=== PATIENT | female | born 1955 | race Caucasian/White ===

== ENCOUNTER 2022-03-15 12:49 | Outpatient (CLI) | payer MEDICARE, SELFPAY ==
--- NOTE | ~2022-03-15 | US_ITS ---
EXAMINATION: US carotid duplex BI DATE: 03/15/2022 13:42 INDICATION: Aortic valve stenosis. Preop. History of TIA. TECHNIQUE: Grayscale, color Doppler, and pulsed Doppler images of the cervical carotid arteries were obtained. The degree of vessel stenosis is placed in one of the following categories: normal, <50%, 5 0-69%, >=70% but less than near-occlusion, near-occlusion, or total occlusion. Note that percent sten osis relative to normal distal artery lumen diameter is indirectly measured from velocity measurement s as described by Demetrio, et al. Radiology 2003; 229:340-346. Notes: Normal: Peak systolic velocity <125 centimeters/sec and no plaque <50%. Peak systolic velocity <125 ( EDV <40; ICA/CCA PSV ratio <2.0; used these factors only a tandem lesions or low cardiac output or co ntralateral disease) 50-69 %: PSV 125-230 (EDV 40-100; ratio 2-4) >= 70% but less than near occlusion: PSV greater than 230 (EDV > 100; ratio> 4.0) Near Occlusion: PSV that is variable; markedly narrowed lumen Occlusion: Absent flow on color/spectral Doppler and no lumen on toussaint scale. COMPARISON: None. FINDINGS: RIGHT: The right common carotid artery (CCA) peak systolic velocity (PSV) is 75 cm/s. The right internal car otid artery (ICA) PSV is 104 cm/s. The right ICA end-diastolic velocity (EDV) is 26 cm/s. The right I CA/CCA PSV ratio is 1.4. The external carotid artery (ECA) PSV is 95 cm/s. There is antegrade flow in the right vertebral artery. LEFT: The left CCA PSV is 83 cm/s. The left ICA PSV is 95 cm/s. The left ICA EDV is 23 cm/s. The left ICA/C CA PSV ratio is 1.1. The ECA PSV is 85 cm/s. There is antegrade flow in the left vertebral artery. IMPRESSION: 1. Less than 50% stenosis in the right internal carotid artery by sonographic criteria. 2. Less than 50% stenosis in the left internal carotid artery by sonographic criteria. Reviewed, dictated and finalized at location A. IMPRESSION: 1. Less than 50% stenosis in the right internal carotid artery by sonographic fay juarez. 2. Less than 50% stenosis in the left internal carotid artery by sonographic yolanda lott.
== END 2022-03-15 12:50 | disposition home or self-care (01) ==
PROVIDERS: PCP Family Medicine Adolescent Medicine; Visit Provider Thoracic Surgery (Cardiothoracic Vascular Surgery)
DX: I35.0 Nonrheumatic aortic (valve) stenosis (principal); Z86.73 Personal history of transient ischemic attack (TIA), and cerebral infarction without residual deficits; I65.23 Occlusion and stenosis of bilateral carotid arteries
CPT/HCPCS: 93880

== ENCOUNTER 2023-09-17 14:37 | Outpatient (CLI) | payer MEDICARE, SELFPAY ==
--- NOTE | ~2023-09-17 | US_ITS ---
EXAMINATION: US thyroid DATE: 09/17/2023 15:03 INDICATION: Nontoxic goiter. TECHNIQUE: Multiple ultrasound images of the thyroid were obtained. COMPARISON: None. FINDINGS: The right thyroid lobe measures 5.6 x 1.6 x 1.8 cm. The left thyroid lobe measures 4.1 x 1.6 x 1.2 c m. There is normal echotexture and echogenicity throughout the thyroid gland. No discrete nodules id entified. Normal vascular flow is present. IMPRESSION: 1. Normal thyroid. Reviewed, dictated and finalized at location E. RNING OFFICER IMPRESSION: 1. Normal thyroid.
== END 2023-09-17 14:38 | disposition home or self-care (01) ==
PROVIDERS: PCP Family Medicine Adolescent Medicine; Visit Provider Registered Nurse
DX: E04.9 Nontoxic goiter, unspecified (principal)
CPT/HCPCS: 76536

== ENCOUNTER 2024-02-20 08:19 | Outpatient (CLI) | payer MEDICARE, SELFPAY ==
--- NOTE | ~2024-02-20 | DEXA_ITS ---
Bone Density Report Name: MOOKIE MARTÍNEZ Age: 68 Sex: Female Ethnicity: White Date of : 1955 Indication: postmenopausal; screening for osteoporosis; height loss; cancer; Referring Provider: REEMA LAKE Study: Bone densitometry was performed. Exam Date: February 20, 2024 Accession number: [id number] Bone Density: Region BMD T-score Z-score Classification AP Spine(L1-L4) 1.302 2.3 4.4 Normal World Health Organization criteria for BMD impression classify patients as: Normal (T-score at or above -1.0), Osteopenia (T-score between -1.0 and -2.5), or Osteoporosis (T-score at or below -2.5). Clinical Information Provided by Patient: Has used the following medications: Vitamin D Has the following medical conditions: Cancer Patient maximum height was 65 Menopause Age: 49 Drinks caffeinated beverages Onset of menses at age 11 Number of children 2 Impression: The patient has normal bone mass. Discussion: LOW RISK OF FRACTURE; BONE DENSITY IS WELL ABOVE THE MINIMUM DESIRABLE LEVEL AND ABOVE AVERAGE FOR AGE AND SEX AT ALL SKELETAL SITES TESTED. This person's bone density is above expected limits for age and sex. This is rarely clinically significant, but should be pursued if there are significant musculoskeletal complaints. The patient should follow a healthful lifestyle (good nutrition with adequate calcium and vitamin D, and appropriate weight-bearing exercise). Follow-Up: Consider repeating this study in 5 years or sooner if there is some new clinical indication. Reported by: MARTA on 02/20/2024 8:46:00 AM. Reviewed, dictated and finalized at location ATorres ESTRADA
== END 2024-02-20 08:20 | disposition home or self-care (01) ==
LOC: ANHIMG 08:20
PROVIDERS: PCP Family Medicine Adolescent Medicine; Visit Provider Family Medicine Adolescent Medicine
DX: Z78.0 Asymptomatic menopausal state (principal)
CPT/HCPCS: 77080

== ENCOUNTER 2025-05-05 15:22 | Emergency (ER) | payer MEDICARE, SELFPAY ==
--- NOTE | ~2025-05-05 | XR_ITS ---
Clinical history:Right distal lateral thigh pain for 2 weeks EXAM:X-ray femur right minimum 2 views TECHNIQUE:4 images of the right femur were obtained. Comparisons:08/17/2009 FINDINGS: Right hip arthroplasty without radiographic evidence for loosening of the hardware. Bones appear osteopenic. Vascular calcifications are noted. No fracture of the right femur is identified. Nonspecific bony irregularity along the lateral aspect of the right inferior acetabulum. There is bowel gas and stool projecting over the pelvis which limits evaluation. IMPRESSION: No fracture of the right femur is identified Nonspecific bony irregularity along the lateral aspect of the right inferior acetabulum. Differential includes sequelae from degenerative change or a subtle nondisplaced fracture of indeterminate age. If there is focal tenderness in this location, consider a CT or MRI for further assessment. Reviewed, dictated and finalized at location Q. IMPRESSION: No fracture of the right femur is identified Nonspecific bony irregularity along the lateral aspect of the right inferior ac etabulum. Differential includes sequelae from degenerative change or a subtle n ondisplaced fracture of indeterminate age. If there is focal tenderness in this location, consider a CT or MRI for further assessment.
[2025-05-05 15:33] VITALS: BP 161/93; PULSE 81; RESP 16; TEMP 37.1; O2SAT 100
--- NOTE | 2025-05-05 16:42 | ED.EXTPRO ---
HPI - Extremity Problem General Chief complaint: Extremity Problem,Nontraumatic Stated complaint: R Leg Pain Time Seen by Provider: 05/05/25 15:37 Source: patient and RN notes reviewed Mode of arrival: ambulatory Limitations: no limitations History of Present Illness HPI Narrative: Patient presents today complaining of proximal right lateral thigh pain x2 weeks. Denies injury or trauma. Associated symptoms include occasional tingling in her low back with some intermittent right-sided low back pain. She describes the thigh pain as burning. She has tried using her 's massage chair at home as well as some Tylenol without improvement. She rates her pain 10/10. History of right hip replacement. Denies numbness to the leg, numbness or tingling in the genitalia, loss of bowel or bladder control. She also denies any groin pain or medial thigh pain, knee pain. Related Data Home Medications ?Medication ?Instructions ?Recorded ?Confirmed ?Last Taken ?Type cholecalciferol (vitamin D3) 1,250 1,250 mcg PO WEEKLY 04/06/21 05/05/25 Unknown History mcg (50,000 unit) capsule loratadine-pseudoephedrine ER 10 1 tablet PO DAILY 04/06/21 05/05/25 Unknown History mg-240 mg tablet,extended [id number] (Claritin-D 24 Hour) aspirin 81 mg tablet,delayed 81 mg PO DAILY 12/19/22 05/05/25 Unknown History release atorvastatin 80 mg tablet 80 mg PO DAILY 12/19/22 05/05/25 Unknown History Allergies Allergy/AdvReac Type Severity Reaction Status Date / Time No Known Allergies Allergy Verified 05/05/25 15:[facility] Past Medical History Medical History Abnormal Pap smear of cervix 04/06/21, HPV pos type 18/45 delivery delivered #1 01/28/89 Male 7 lbs #2 06/30/92 Female 7 lbs Stroke Breast cancer Surgical History Surgical History S/P lumpectomy, right breast x 2 History of section, classical x 2 History of lumpectomy of left breast History of bilateral hip replacements Social History Social History Smoking status: Never smoker Alcohol intake: never Substance use: never Lack of Transportation: No Lack of Food: Never True Current Housing: I Have Housing Concerned About Future Housing: No Difficulty Paying Gas/Electric Bills: No Difficulty Paying for Meds: No Currently Unemployed: No Education: Associate Degree Difficulty w/ Childcare or Family Care: No Living arrangements: with family Occupation/Education: occupation Gender identity (if verbalized by the patient): Female Sexual Orientation (if Verbalized by the Patient): Straight or Heterosexual Spiritual care concerns: No Comments At time of signature, I have reviewed and agree with nursing past medical, surgical, social and family history unless otherwise noted. Please see nursing chart for further information. There is no relevant family history pertinent to the presenting complaint Exam Narrative: GENERAL: Well-appearing, well-nourished, and in no acute distress. HEAD: Normocephalic, atraumatic. EYES: EOMI. No redness or drainage. Conjunctivae normal. ENT: Mucous membranes pink and moist.. NECK: Normal AROM. CHEST: No respiratory distress. MUSCULOSKELETAL: No bony tenderness the lumbar spine. Mild right lower lumbar paraspinal muscle tenderness with palpation. EXTREMITIES: Normal range of motion of the right hip and knee. No edema, erythema, ecchymosis. No tenderness to the hip. Mild Muscular tenderness to the proximal half of the right lateral thigh without any obvious abnormalities. No tenderness to the knee. Distal sensation intact. Capillary saddle sensation intact. 5/5 strength in BLE SKIN: Warm, dry, no rash. Capillary refill normal. Normal skin turgor. NEURO: No focal deficits. Alert and oriented x3. Gait steady. PSYCH: Normal affect. No signs of depression or anxiety. Course Course Level of Care: Express Care Visit Vital Signs Vital signs: Vital Signs Temperature 98.7 F 05/05/25 15:33 Pulse Rate 81 05/05/25 15:33 Respiratory Rate 16 05/05/25 15:33 Blood Pressure 161/93 H 05/05/25 15:33 Pulse Oximetry 100 05/05/25 15:33 Temperature 98.7 F 05/05/25 15:33 Pulse Rate 81 05/05/25 15:33 Respiratory Rate 16 05/05/25 15:33 Blood Pressure 161/93 H 05/05/25 15:33 Pulse Oximetry 100 05/05/25 15:33 Review MDM - Extremity (Nontraumatic) MDM Narrative Medical decision making narrative: 69-year-old female presents with a 2 week history of right lateral thigh pain the proximal half of the thigh without injury or trauma to the area with intermittent right lower lumbar muscular pain and tingling. OTC treatments without improvement. Upon exam, patient has some mild paraspinal muscle tenderness in the right lower lumbar as well as muscular tenderness in the right lateral thigh. Neurovascularly intact with normal strength. X-ray noncontributory. Etiology likely lumbar radiculopathy. Will treat with 5 mg Flexeril and prednisone. Patient has follow-up visit scheduled for next week with her PCP. Patient agrees with plan. Vital signs stable. Differential Diagnosis Differential diagnosis: Likely other (Osteoarthritis, lumbar radiculopathy, bursitis, sciatica) Imaging Data Radiologist's impression: ITS Impressions Femur X-Ray 05/05/25 16:19 IMPRESSION: No fracture of the right femur is identified Nonspecific bony irregularity along the lateral aspect of the right inferior acetabulum. Differential includes sequelae from degenerative change or a subtle nondisplaced fracture of indeterminate age. If there is focal tenderness in this location, consider a CT or MRI for further assessment. Critical Care Time Critical Care Time Critical Care Time: No Discharge Plan Discharge Clinical Impression: Acute lumbar radiculopathy Patient Disposition: Home Condition: Stable Instructions: Lumbar Radiculopathy (ED) Additional Instructions: The x-ray of your leg is negative today. The pain in your leg may be due to irritation in a nerve coming from your spine. Please take the Flexeril and prednisone as directed. Do not drive within 8 hours of taking the Flexeril as it can make you drowsy. You may continue Tylenol if needed. Follow-up with your PCP as scheduled. Go to the ER if you develop numbness or tingling in your leg or foot, or genitalia, loss of bowel or bladder control. Your blood pressure was elevated above 120/80 today at Urgent Care. This puts you above the threshold for follow up. Please schedule a followup visit with your personal physician as soon as possible, for further evaluation and treatment. Even blood pressure exceeding 120/80 may indicate pre-hypertension. Patient Language: Romanian Prescriptions: New cyclobenzaprine 5 mg tablet 5 mg PO TID PRN (Reason: muscle spasm) Qty: 15 0RF prednisone 20 mg tablet 40 mg PO DAILY 5 Days Qty: 10 0RF No Action aspirin 81 mg tablet,delayed release (DR/EC) 81 mg PO DAILY atorvastatin 80 mg tablet 80 mg PO DAILY loratadine-pseudoephedrine [Claritin-D 24 Hour] 10-240 mg tablet extended release 24 hr 1 tablet PO DAILY cholecalciferol (vitamin D3) 1,250 mcg (50,000 unit) capsule 1,250 mcg PO WEEKLY Follow-up/Referrals: Tanner Jordan MD [Primary Care Provider, Family Practice] Time of Disposition: 16:49
== END 2025-05-05 16:56 | disposition home or self-care (01) ==
PROVIDERS: Emergency Provider Nurse Practitioner; PCP Family Medicine Adolescent Medicine
DX: M54.16 Radiculopathy, lumbar region (principal); Z86.73 Personal history of transient ischemic attack (TIA), and cerebral infarction without residual deficits; Z85.3 Personal history of malignant neoplasm of breast; Z90.13 Acquired absence of bilateral breasts and nipples; Z96.643 Presence of artificial hip joint, bilateral; Z79.82 Long term (current) use of aspirin
CPT/HCPCS: 73552; 99213; G0463

== ENCOUNTER 2025-05-21 10:31 | Emergency (ER) | payer MEDICARE, SELFPAY ==
--- OUTSIDE RECORDS SUMMARY | 2010-05-18 04:45 | XMS_ITS | Continuity of Care Document ---
Author Organization [facility] [place] Address [address] [place] [address] Phone Care Team Providers Care Store Custodian Name Role Phone Grey OD, Robb Unavailable Unavailable Procedures Procedure Date Contact Lens Check Contact Lens Hydrophilic, Spherical Medical Tax Eye Exam & Treatment Refraction Frames Deluxe SV Poly Carb Sph +/- 7.12 To +/- 20 D Au Anti-reflective Coating Medical Tax Eye Exam & Treatment Refraction CL Replacement - Other Lens [employer] Eye Exam & Treatment Refraction CL Replacement - [employer] Disp W/BW Soft [employer] SV Poly Carb Sph +/- 7.12 To +/- 20 D Ju Frames Deluxe [employer] CL Replacement - [employer] Disp W/BW Soft Smarty Ring Eye Exam & Treatment Refraction Advance Directives Directive Yes / No Effective Date File Name No Information Encounters Encounter Description Practice Location Reason(s) For Visit Diagnoses Date Provider Providers Copied on [facility]counter [facility], [address], [place], [place], [address], [place] tel:[phone] [facility] No Information 0 3-201 0 Grey OD Robb. [address] , [address], [place], [address], [place]. tel:[phone] [facility], [address], [place], [place], [address], [place] tel:[phone] [facility] No Information Aug-2 6-201 0 Grey OD Robb. [address] , [address], [place], [place], [facility], [place]. tel:[phone] [facility], [address], [place], [place], [address], [place] tel:[phone] [facility] No Information Apr-2 6-201 0 [facility] . [address], [address], [place], [place], [address], . tel:[phone] Consulting Provider: Agueda Mccarty, [address] [place], [place], [facility]. tel:[phone] [facility], [address], [place], [place], [address], [place] tel:[phone] [facility] No Information Apr-2 2-200 9 Grey OD Robb. [address] , [address], [place], [address], [place]. tel:[phone] [facility], [address], [place], [place], [address], [place] tel:[phone] [facility] No Information Sep-1 8-200 8 Grey OD Robb. [address] , [address], [place], [place], [facility], [place]. tel:[phone] [facility], [address], [place], [place], [address], [place] tel:[phone] [facility] No Information Mar-2 7-200 7 [facility] . [address], [address], [place], [place], [address], [place]. tel:[phone] Consulting Provider: Agueda Mccarty, [address] [place], [address]. tel:[phone] [facility], [address], [place], [place], [address], [place] tel:[phone] [facility] No Information 6-200 7 Grey OD Robb. [address] , [address], [place], [address], [place]. tel:[phone] [facility], [address], [place], [place], [address], [place] tel:[phone] [facility] No Information 9-200 7 Grey OD Robb. [address] [facility] , [address], [place], [address], [place]. tel:[phone] Family History Family Member Type Diagnosis Age At Onset No Information Payers Payer name Insurance type Covered alliance party ID Authoriza tion(s) No Information Social History [...]
--- NOTE | ~2025-05-21 | US_ITS ---
EXAMINATION: US venous doppler LE RT DATE: 05/21/2025 14:43 INDICATION: Left lower limb pain TECHNIQUE: Grayscale ultrasound images without and with compression and Doppler ultrasound images of the right lower extremity veins were obtained. COMPARISON: None. FINDINGS: The visualized portions of right common femoral vein, profunda (deep) femoral vein, femoral vein, popliteal vein, peroneal trunk, posterior tibial veins, peroneal veins, gastrocnemius vein and greater saphenous vein outflow are patent. IMPRESSION: 1. No deep venous thrombosis in the right lower limb. Reviewed, dictated and finalized at location A.
--- NOTE | ~2025-05-21 | CT_ITS ---
EXAMINATION: CT hip RT wo con DATE: 05/21/2025 12:24 INDICATION: Lateral right hip pain and tenderness to palpation TECHNIQUE: High resolution computed tomography (CT) of the right hip was performed without intravenous contrast. Additional sagittal and coronal reconstructions were performed. Automated exposure control and iterative reconstruction technique were employed. The dose-length product was 269.08 mGy-cm. COMPARISON: Right femur radiographs dated FINDINGS: Right total hip arthroplasty which appears well seated in near-anatomic alignment. No periprosthetic lucency to suggest loosening or infection. No right hip joint effusion. No fracture. Moderate osteoarthritis at the right sacroiliac joint. Chronic corticated ossicle along the posterior margin of the right ischial tuberosity which could be either enthesopathic or sequela of chronic avulsion injury. There is fatty atrophy of the right gluteus minimus and small portion anterior gluteus medius medius muscle belly. IMPRESSION: 1. Expected appearance of a right total hip arthroplasty. No joint effusion or acute osseous abnormality. Reviewed, dictated and finalized at location A.
--- NOTE | ~2025-05-21 | XR_ITS ---
EXAMINATION: [id number] DATE: 05/21/2025 12:29 INDICATION: Distal right thigh and lateral knee pain TECHNIQUE: AP and lateral views of the right knee were obtained. COMPARISON: None. FINDINGS: Alignment is normal. No fracture. Mild joint space narrowing at the lateral compartment of the right knee on the frontal projection with moderate joint space narrowing the lateral compartment on the lateral projection with the knee in partial flexion. Tiny marginal osteophytes at the medial and patellofemoral compartments. No joint effusion/layering lipohemarthrosis. Vascular calcification along the distal femoral and proximal popliteal artery. Soft tissues are otherwise unremarkable. IMPRESSION: 1. Tricompartmental osteoarthritis at the right knee with at least mild to moderate joint space narrowing in the lateral compartment although joint space narrowing can be underestimated on nonweightbearing imaging. Reviewed, dictated and finalized at location A. IMPRESSION: 1. Tricompartmental osteoarthritis at the right knee with at least mild to mode rate joint space narrowing in the lateral compartment although joint space narr owing can be underestimated on nonweightbearing imaging.
[2025-05-21 10:35] VITALS: BP 181/90; PULSE 87; RESP 16; TEMP 36.4; O2SAT 100
--- OUTSIDE RECORDS SUMMARY | 2025-05-21 11:12 | XMS_ITS | Clinical Summary ---
Author Organization [facility] Address [address], [facility] [address] [place] [address] Phone Care Team Providers Care Screen Printing Stencil Preparer Name Role Phone Mraleen Langston APRN, [employer] ARCHITECT Primary Care Provider + Anitha Alvarez MD Unavailable [phone] Janie Mancilla MD Unavailable [phone] Alina Gurrola MD Unavailable [phone] Allergies No known active allergies Medications aspirin EC 81 MG Tablet Delayed Response Take 81 mg by mouth daily. 10/21/2022 Active atorvastatin (LIPITOR) 80 MG Tablet Take 80 mg by mouth nightly. 11/13/2022 Active ergocalciferol (VITAMIN D) 79088 UNIT Capsule TAKE 1 CAPSULE BY MOUTH ONE TIME PER WEEK 07/24/2020 Active loratadine-pseu doephedrine (Claritin-D 24 Hour) 10-240 MG TABLET SR 24 HR 05/16/2015 Act rich ezetimibe (ZETIA) 10 MG Tablet Take 1 Tablet by mouth daily. 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, estrogen receptor positive 12/12/2022 Cancer Staging:Clinical stage from 08/22/2022:Stage IIA(cT2, cN0(f), cM0, G2, ER+, WY-, HER2-) - Signed by Janie Mancilla MD on 12/30/2022 Pathologic stage from 10/15/2022:Stage IIA(pT2, pN0(sn), cM0, G2, ER+, WY-, HER2- , Oncotype DX score: 22) - Signed by Janie Mancilla MD on 12/12/2022 Overview (01/20/2023): Clinical and pathologic stage IIA (pT2, pNo(sn), cM0, G2, ER positive, WY/HER2 negative, Oncotype DX score: 22) invasive lobular carcinoma status post right partial mastectomy and right axillary sentinel lymph node biopsy 10/15/2022 with involved margins followed by re-excision of the right breast partial mastectomy cavity 11/15/2022 with no evidence of residual neoplasm. She was seen in Medical Oncology consultation not recommended to receive cytotoxic chemotherapy or immunotherapy and instead was to be placed on adjuvant endocrine therapy with exemestane after completion of right breast radiotherapy. She began right whole breast radiotherapy 12/24/2022 and completed 01/14/2023 receiving 42.56 Gy in 16 fractions. History of therapeutic radiation 12/12/2022 Overview (01/20/2023): A. Right whole breast radiotherapy, 42.56 Gy in 16 fractions, from 12/24/2022 thru 01/14/2023. B. Left whole breast radiotherapy, total dose 60.40 Gy in 33 fractions from 04/26/2010 thru 06/13/2010. History of aromatase inhibitor therapy Overview (12/12/2022): Femara History of left breast cancer 12/12/2022 Overview (12/31/2022): Pathologic stage IIA (pT2, pN0, cM0) ER/WY/HER2 positive left breast IDC status post breast conserving surgery and 4 cycles of TCH chemotherapy prior to XRT. She received left whole breast radiotherapy, total dose 60.40 cGy in 33 fractions from 04/26/2010 thru 06/13/2010. Concurrent with her radiotherapy she continued to receive Herceptin every 3 weeks and after radiotherapy continue for a total of 1 year of Herceptin. She also received 5 years of letrozole. Use of exemestane (Aromasin) Resolved Problems Problem Noted Date Diagnosed Date Resolved Date Encounter for radiotherapy 0 02/18/2023 Acute radiation dermatitis 0 02/18/2023 Adverse effect of radiation 02/18/2023 Skin infection 02/18/2023 Cystitis 02/18/2023 Family History Medical History Relation Name Comments Cancer Brother Hypertension Father Stroke Father Relation Name Status Comments Brother Father Mother Social History Tobacco Use Types Packs/Day Years Used Date Smoking Tobacco: Never Smokeless Tobacco: Never Tobacco Cessation:Counseling Given: Not Answered Alcohol Use Standard Drinks/Week Comments Yes 0 (1 standard drink = 0.6 oz pur e alcohol) Occasionally Comments Unknown Sex and Gender Information Value Date Recorded Sex Assigned at Not on file Legal Sex Female 12:26 AM CDT Gender Identity Not on file Sexual Orientation Not on file Last Filed Vital Signs Vital Sign Reading Time Taken Comments Blood Pressure 151/77 09/17/2024 9:10 AM ONCOLOGY COORDINATOR Pulse 65 09/17/2024 9:10 AM ONCOLOGY COORDINATOR Temperature 36.4 C (97.6 F) 09/17/2024 9:10 AM ONCOLOGY COORDINATOR Respiratory Rate 16 09/17/2024 9:10 AM ONCOLOGY COORDINATOR Oxygen Saturation 100% 09/17/2024 9:10 AM ONCOLOGY COORDINATOR Inhaled Oxygen Concentration - - Weight 67.9 kg (149 lb 9.6 oz) 09/17/2024 9:10 A M ONCOLOGY COORDINATOR Height 162.6 cm (5' 4) 09/17/2024 9:10 AM ONCOLOGY COORDINATOR Body Mass Index 25.68 09/17/2024 9:10 AM ONCOLOGY COORDINATOR Plan of Treatment Upcoming Encounters Date Type Department Care Team (Late st Contact Info) Description 09/16/2025 8:00 AM ONCOLOGY COORDINATOR Office Visit [facility] [address] [place] [id number] Janie Mancilla MD [address] [place] [address] Discharge Disposition: Discharged to home or Selfcare Health Maintenance Due Date Last Done Comments DEXA Bone Density 1955 Hepatitis C Virus (HCV) Screening 1955 TdaP Immunization 1954 Pneumococcal Immunization (50+ years) (1 of 2 - PCV) 1973 Zoster Immunization (1 of 2) 1973 Cologuard 1999 Colonoscopy 1999 Colorectal Cancer Screening 1999 Immunochemical Fecal Occult Blood 1999 Respiratory Syncytial Virus (RSV) Immunization (Adult) (1 - Risk 60-74 years 1-dose series) 2014 SARS-COV-2 Immunization (2 - Charly risk series) 06/25/2021 05/28/2021 Influenza Immunization (#1) 2025 Mammogram 09/14/2025 09/14/2024, 08/16, 09/17/2022, Additional history exists Mammogram Unilateral Discontinued 09/14/2024, 09/14/2024, 09/05/2023, Additional history exists Hepatitis B Immunization Aged Out No longer eligible based on patient's age to complete this topic Human Papillomavirus (HPV) Immunization Aged Out No longer eligible based on patient's age to complete this topic Meningococcal Immunization (ACWY) Aged Out No longer eligible based on patient's age to complete this topic Rotavirus Immunization Aged Out No lo nger eligible based on patient's age to complete this topic Insurance MEDICARE C AETNA Care Teams Screen Printing Stencil Preparer Relationship Specialty Start Date End Date Marleen Langston, SERVICE CENTER ASSISTANT, [employer] ARCHITECT PCP - General Obstetrics & Gynecology 03/12/17 Anitha Alvarez MD Consulting Physician General Surgery 12/12/22 Janie Mancilla MD [address] [place] [address] Consulting Physician Radiation Oncology 12/12/22 Alina Gurrola MD [address] [facility] [address] [place] [address] Consulting Physician Medical Oncology 08/27/23
--- OUTSIDE RECORDS SUMMARY | 2025-05-21 11:12 | XMS_ITS ---
Author Organization [facility] Address [address], [facility] [address] [place] [address] Phone Care Team Providers Care Production Proofreader Name Role Phone Marleen Langston APRN, SPONSORSHIP COORDINATOR Primary Care Provider + Anitha Alvraez MD Unavailable [phone] Janie Mancilla MD Unavailable [phone] Alina Gurrola MD Unavailable [phone] Active Problems Problem Noted Date Diagnosed Date Carcinoma of overlapping sit es of right breast in female, estrogen receptor positive 12/12/2022 Cancer Staging:Clinical stage from 08/22/2022:Stage IIA(cT2, cN0(f), cM0, G2, ER+, AR-, HER2-) - Signed by Janie Mancilla MD on 12/30/2022 Pathologic stage from 10/15/2022:Stage IIA(pT2, pN0(sn), cM0, G2, ER+, AR-, HER2- , Oncotype DX score: 22) - Signed by Janie Mancilla MD on 12/12/2022 Overview (01/20/2023): Clinical and pathologic stage IIA (pT2, pNo(sn), cM0, G2, ER positive, AR/HER2 negative, Oncotype DX score: 22) invasive lobular [...] (12/31/2022): Pathologic stage IIA (pT2, pN0, cM0) ER/AR/HER2 positive left breast IDC status post breast [...] years of letrozole. Use of exemestane (Aromasin) Current Treatment and Therapy Plans No current plan information found. Past Treatment and Therapy Plans No past plan information found. Current Radiation Episodes * 3D GROUNDSKEEPER PORTER: Right BreastOverview* First Treatment Date Latest Treatment Date Treatment Site Technique Goal Episode Provider 12/24/2022 01/14/2023 Right Breast 3D GROUNDSKEEPER PORTER Curative * Linked Problems Carcinoma of overlapping sit es of right breast in female, estrogen receptor positive (HCC) Treatment Courses* Course C2 12/24/2022 - 01/14/2023 Treatment Period Fraction Dose Fractions Total Dose Plans Planned R [id number] 12/24/2022 - 01/14/2023 266 cGy / 3 4,256 cGy R Brst_Rev 12/27/2022 - 01/14/2023 266 cGy 13 / 13 3 ,458 cGy Reference Points Delivered R Breast_PRP 12/24/2022 - 01/14/2023 4,256 cGy Resolved Problems Problem Noted Date Diagnosed Date Resolved Date Encounter for radiotherapy 0 02/18/2023 Acute radiation dermatitis 0 02/18/2023 Adverse effect of radiation 02/18/2023 Skin infection 02/18/2023 Cystitis 02/18/2023
--- NOTE | 2025-05-21 11:28 | ED.EXTPRO ---
HPI - Extremity Problem General Chief complaint: Extremity Problem,Nontraumatic Stated complaint: right leg pain Time Seen by Provider: 05/21/25 11:03 Source: patient and family (Daughter) Mode of arrival: ambulatory Limitations: no limitations History of Present Illness HPI Narrative: Patient presents with report of right leg pain of approximately 1 months duration and worsening. She states that initially she was having pain along the distal lateral aspect of her thigh as well as the lateral aspect of her right knee but more recently the pain seems to be along the lateral aspect of her right hip and into her buttock. She denies any midline back pain. The pain is in her buttock and travels along the lateral aspect in general of her entire hip and thigh. She does endorse wearing a belt but denies any tight pants otherwise or wearing heavy belt/told though. No history of diabetes mellitus. She denies any fevers or chills. Patient went to urgent care and was told that she possibly had a hairline fracture around her right hip which was replaced in [address] Rashid who had been with [facility] at the time (but is now in [place]). She denies any injury or trauma. She describes it as a burning sensation. While at urgent care she was prescribed a short course of cyclobenzaprine and a 5 day course of prednisone which she completed. After that her primary care physician represcribed her cyclobenzaprine. No fevers or chills. No history of DVT or PE. She will occasionally experience some numbness/tinglign in her foot. Related Data Home Medications ?Medication ?Instructions ?Recorded ?Confirmed ?Last Taken ?Type cholecalciferol (vitamin D3) 1,250 1,250 mcg PO WEEKLY 04/06/21 05/17/25 Unknown History mcg (50,000 unit) capsule loratadine-pseudoephedrine ER 10 1 tablet PO DAILY 04/06/21 05/17/25 Unknown History mg-240 mg tablet,extended [id number] (Claritin-D 24 Hour) aspirin 81 mg tablet,delayed 81 mg PO DAILY 12/19/22 05/17/25 Unknown History release atorvastatin 80 mg tablet 80 mg PO DAILY 12/19/22 05/17/25 Unknown History Allergies Allergy/AdvReac Type Severity Reaction Status Date / Time No Known Allergies Allergy Verified 05/11/25 15:37 [facility] Past Medical History Medical History (Updated 05/22/25 @ 00:01 by Nuvia Pina) Abnormal Pap smear of cervix 04/06/21, HPV pos type 18/45 delivery delivered #1 01/28/89 Male 7 lbs #2 06/30/92 Female 7 lbs Stroke Breast cancer Surgical History Surgical History S/P lumpectomy, right breast x 2 History of section, classical x 2 History of lumpectomy of left breast History of bilateral hip replacements R 2009 Dr Rashid (previously with [facility]) Social History Social History (Updated 05/11/25 @ 15:49 by Meredith Carlos [facility]) Smoking status: Never smoker Alcohol intake: never Substance use: never Do You Feel Safe in your Home?: Yes Lack of Transportation: No Lack of Food: Never True Current Housing: I Have Housing Concerned About Future Housing: No Difficulty Paying Gas/Electric Bills: No Difficulty Paying for Meds: No Currently Unemployed: No Education: Associate Degree Difficulty w/ Childcare or Family Care: No Living arrangements: with family Occupation/Education: occupation Gender identity (if verbalized by the patient): Female Sexual Orientation (if Verbalized by the Patient): Straight or Heterosexual Spiritual care concerns: No Exam Narrative: GENERAL: Well-appearing, well-nourished HEAD: Normocephalic, atraumatic. EYES: Non injected, non icteric ENT: Nares clear, no rhinorrhea or epistaxis. Gross auditory acuity intact. NECK: Supple. No meningismus. CHEST: Speaking in full sentences. No respiratory distress. HEART: Regular rate and rhythm. . ABDOMEN: Soft, nondistended. No rigidity or guarding. Not peritoneal EXTREMITIES: Normal range of motion. No lower extremity edema. Patient has some tenderness to palpation in this area but without obvious bony deformity. 5/5 strength with bilateral ankle dorsiflexion plantar flexion. Mild TTP throughout lateral R thigh. BACK: No midline TTP lumbar spine. Mild TTP into R buttock, less so than at R hip. SKIN: Warm, dry, no rash. Well-healed surgical scar along lateral aspect of right hip. No erythema, induration, vesicles/lesions. NEURO: No focal deficits. Alert and oriented. Answering questions. Following commands. Normal speech without aphasia or dysarthria. Sensation intact to gross touch throughout right lower extremity. PSYCH: Normal mood and affect. Course Vital Signs Vital signs: Vital Signs Temperature 97.6 F 05/21/25 10:35 Pulse Rate 87 05/21/25 10:35 Respiratory Rate 16 05/21/25 10:35 Blood Pressure 181/90 H 05/21/25 10:35 Pulse Oximetry 100 05/21/25 10:35 Oxygen Delivery Room Air 05/21/25 10:35 Temperature 97.6 F 05/21/25 10:35 Pulse Rate 66 05/21/25 16:27 Respiratory Rate 18 05/21/25 16:27 Blood Pressure 164/83 H 05/21/25 16:27 Pulse Oximetry 100 05/21/25 16:27 Oxygen Delivery Room Air 05/21/25 10:35 MDM - Extremity (Nontraumatic) MDM Narrative Medical decision making narrative: Patient presents with report of right leg pain approximately 1 months duration and worsening. She states it initially started as distal lateral thigh pain as well as right lateral knee pain has since progressed to become a right lateral hip pain from to buttock and extending along the lateral aspect of entire right thigh. Pain terminates at the knee but then she will occasionally experience him some tingling in her foot. X-ray to urgent care in April as below. In the emergency department she is afebrile with vital signs notable for hypertension. CRP mildly elevated as is ESR. Dimer mildly elevated; US ordered. We discussed that distribution of symptoms is consistent with meralgia paresthetica but could not exclude osteomyelitis although felt to be less likely at this point given otherwise well/non-toxic appearing. Advised multimodal pain strategy and follow up with PCP in 3 days if not improving as may require alternative pain management strategy, injection, PT, advanced imaging such as MRI, etc. Also given strict ED return precautions which she verifies understanding. Daughter able to provide transportation home today after medications have been given. Differential Diagnosis Differential diagnosis: Likely herpes zoster, cellulitis, superficial thrombophlebitis, deep vein thrombosis of lower extremity and other (Femoral cutaneous/meralgia paresthetica; hardware malfunction; osteoarthritis; osteomyelitis; considered sciatica; fracture/dislocation) Medical Records Attestation: I reviewed the patient's medical records. Medical records narrative: 05/05/25 XRAY IMPRESSION: No fracture of the right femur is identified Nonspecific bony irregularity along the lateral aspect of the right inferior acetabulum. Differential includes sequelae from degenerative change or a subtle nondisplaced fracture of indeterminate age. If there is focal tenderness in this location, consider a CT or MRI for further assessment. Lab Data Attestation: I reviewed the patient's lab results. Lab results narrative: CBC w/o leukocytosis, anemia, thrombocytopenia 05/21/25 13:37 05/21/25 13:37 Labs: Lab Results 05/21/25 Range/Units 13:37 WBC 7.0 (4.5-10.0) K/mm3 RBC 4.44 (4.2-5.4) M/mm3 Hgb 12.7 (12.0-15.0) g/dL Hct 38.7 (37.0-47.0) % MCV 87.2 (80-100) fl MCH 28.6 (26-34) pg MCHC 32.8 (32-36) g/dl RDW 12.3 (11.5-14.5) % Plt Count 220 (150-375) k/mm3 MPV 8.5 (7.4-10.4) fl Immature Gran % (Auto) 0.3 (0-0.5) % Neut % (Auto) 63.3 (45.5-73.1) % Lymph % (Auto) 26.1 (18.3-44.2) % Wirt % (Auto) 8.5 (2.6-8.5) % Eos % (Auto) 0.9 (0-4.4) % Baso % (Auto) 0.9 (0.2-1.2) % Lymph # (Auto) 1.82 (0.9-3.2) K/mm3 Wirt # (Auto) 0.6 (0.1-0.6) K/mm3 Eos # (Auto) 0.1 (0-0.3) K/mm3 Baso # (Auto) 0.1 (0.0-0.1) K/mm3 Abs Immat Gran (auto) 0.02 (0.00-0.031) K/mm3 Absolute Neuts (auto) 4.4 (1.3-6.7) K/mm3 Absolute Nucleated RBC 0.000 (0.0-0.012) K/mm3 Nucleated RBC % 0.0 (0.0-0.2) % ESR 47 H (0-20) mm/hr PT 14.0 (11.1-14.7) Seconds INR 1.1 APTT 28.0 (22.3-36.8) Seconds D-Dimer 0.53 H (<0.48) ug/mL Sodium 134 L (137-145) mmol/L Potassium 4.8 (3.4-5.0) mmol/L Chloride 101 (98-107) mmol/L Carbon Dioxide 29 (22-30) mmol/L Anion Gap 4 (4-12) mmol/L BUN 10 (7-17) mg/dL Creatinine 0.76 (0.7-1.0) mg/dL Estim Creat Clear Calc 52 ml/min Estimated GFR > 60 (59 - ) Glucose 107 (65-110) mg/dL Calcium 9.0 (8.4-10.2) mg/dL Magnesium 2.2 (1.6-2.3) mg/dL Total Creatine Kinase 71 (30-135) U/L C-Reactive Protein 1.7 H (<1.0) mg/dL Imaging Data Radiologist's impression: IMPRESSION: 1. Expected appearance of a right total hip arthroplasty. No joint effusion or acute osseous abnormality. IMPRESSION: 1. Tricompartmental osteoarthritis at the right knee with at least mild to moderate joint space narrowing in the lateral compartment although joint space narrowing can be underestimated on nonweightbearing imaging. IMPRESSION: 1. No deep venous thrombosis in the right lower limb. Discharge Plan Discharge Clinical Impression: Tricompartment osteoarthritis of right knee, History of total right hip arthroplasty, Hip pain, right, CRP elevated, Elevated erythrocyte sedimentation rate Patient Disposition: Home Condition: Stable Instructions: Antibiotic Form, Osteoarthritis (DC), Meralgia Paresthetica (ED), Hip Pain (ED) Additional Instructions: As we discussed, recommend the aggressive multimodal pain management strategy. Acetaminophen/Tylenol (maximum 4000 mg per day) is safe to take with NSAIDs (ibuprofen/Motrin) for pain relief. Of those, the NSAIDs also help with inflammation. Limit wearing a belt. Muscle relaxer and lidocaine patches have also been ordered. Follow-up with your PCP in the next 3 days. If not improving, you may require advanced imaging such as MRI, physical therapy, alternative pain medication including but not limited to injections or other oral medications, etc. Return to the emergency department with any new or worsening symptoms. Return to the ER if you have increased pain in your back, you develop lower extremity weakness/numbness/paralysis, you have numbness or tingling in your private parts, or you are unable to control your ability to urinate/stool. Patient Language: Gibraltarian Prescriptions: New lidocaine 4 % adhesive patch,medicated 1 patch topical DAILY PRN (Reason: pain) Qty: 10 0RF ibuprofen 600 mg tablet 600 mg PO TID PRN (Reason: pain) Qty: 30 0RF acetaminophen 500 mg capsule 1,000 mg PO Q6H PRN (Reason: pain) Qty: 30 0RF methocarbamol 750 mg tablet 750 mg PO HS Qty: 7 0RF No Action prednisone 20 mg tablet 40 mg PO DAILY 5 Days Qty: 10 0RF aspirin 81 mg tablet,delayed release (DR/EC) 81 mg PO DAILY atorvastatin 80 mg tablet 80 mg PO DAILY cyclobenzaprine 5 mg tablet 5 mg PO TID PRN (Reason: muscle spasm) Qty: 30 0RF loratadine-pseudoephedrine [Claritin-D 24 Hour] 10-240 mg tablet extended release 24 hr 1 tablet PO DAILY cholecalciferol (vitamin D3) 1,250 mcg (50,000 unit) capsule 1,250 mcg PO WEEKLY Follow-up/Referrals: Kiara Boyd DO [Primary Care Provider, Family Practice] Stand Alone Forms: Work/School Release IP Time of Disposition: 16:08
[2025-05-21] MEDS: HYDROcodone/acetaminophen (*CRX) 5-325 MG TABLET 1 TAB PO (12:33)
[2025-05-21 13:29] VITALS: BP 169/59; PULSE 65; RESP 18; O2SAT 97
[2025-05-21 13:57] LABS: Hematocrit 38.7 % (37.0-47.0); Hemoglobin 12.7 g/dL (12.0-15.0); Immature Granulocyte Percent A 0.3 % (0-0.5); Lymphocytes Absolute Auto 1.82 K/mm3 (0.9-3.2); Mean Corpuscular HGB Conc 32.8 g/dl (32-36); Mean Corpuscular Hemoglobin 28.6 pg (26-34); Mean Corpuscular Volume 87.2 fl (80-100); Nucleated Red Blood Cells Absolute Auto 0.000 K/mm3 (0.0-0.012); Nucleated Red Blood Cells Perc 0.0 % (0.0-0.2); Platelet Count Result 220 k/mm3 (150-375); Red Blood Count 4.44 M/mm3 (4.2-5.4); White Blood Count 7.0 K/mm3 (4.5-10.0)
[2025-05-21 14:10] LABS: Anion Gap 4 mmol/L (4-12); Blood Urea Nitrogen 10 mg/dL (7-17); Calcium 9.0 mg/dL (8.4-10.2); Carbon Dioxide 29 mmol/L (22-30); Chloride 101 mmol/L (98-107); Creatine Kinase 71 U/L (30-135); Estimated CRCL calculation 52 ml/min; Estimated Glomerular Filt Rate > 60; Glucose 107 mg/dL (65-110); Magnesium 2.2 mg/dL (1.6-2.3); Potassium 4.8 mmol/L (3.4-5.0); Sodium 134 mmol/L (137-145)
[2025-05-21 14:11] LABS: CRP 1.7 mg/dL (<1.0)
[2025-05-21 14:12] LABS: INR 1.1; Prothrombin Time 14.0 Seconds (11.1-14.7)
[2025-05-21 14:13] LABS: Partial Thromboplastin Time 28.0 Seconds (22.3-36.8)
[2025-05-21] MEDS: diazePAM (*CRX) 2 MG TABLET PO (16:21)
[2025-05-21 16:27] VITALS: BP 164/83; PULSE 66; RESP 18; O2SAT 100
[2025-05-21] MEDS: KETOROLAC 30 MG/ML VIAL (*BKC) 15 MG IM (16:29)
== END 2025-05-21 16:39 | disposition home or self-care (01) ==
PROVIDERS: Emergency Provider Student in an Organized Health Care Education/Training Program; PCP Family Medicine
DX: M25.551 Pain in right hip (principal); M17.11 Unilateral primary osteoarthritis, right knee; R79.82 Elevated C-reactive protein (CRP); R70.0 Elevated erythrocyte sedimentation rate; Z96.643 Presence of artificial hip joint, bilateral; I10 Essential (primary) hypertension; Z86.73 Personal history of transient ischemic attack (TIA), and cerebral infarction without residual deficits; Z85.3 Personal history of malignant neoplasm of breast; Z79.899 Other long term (current) drug therapy
CPT/HCPCS: 36415; 73560; 73700; 80048; 82550; 83735; 85025; 85380; 85610; 85652; 85730; 86140; 93971; 96372; 99284; A9270; J1885

== ENCOUNTER 2025-06-17 10:26 | Outpatient (CLI) | payer MEDICARE, SELFPAY ==
--- OUTSIDE RECORDS SUMMARY | 2010-05-18 04:45 | XMS_ITS | Continuity of Care Document ---
Author Organization [facility] [place] Address [address] [place] [address] Phone Care Team Providers Care Landman Name Role Phone Grey OD, Robb Unavailable Unavailable Procedures Procedure Date Contact Lens Check Contact Lens Hydrophilic, Spherical Medical Tax Eye Exam & Treatment Refraction Frames Deluxe SV Poly Carb Sph +/- 7.12 To +/- 20 D Au Anti-reflective Coating Medical Tax Eye Exam & Treatment Refraction CL Replacement - Other Lens [employer] Eye Exam & Treatment Refraction CL Replacement - [employer] Disp W/BW Soft [employer] SV Poly Carb Sph +/- 7.12 To +/- 20 D Ju Frames Deluxe [employer] CL Replacement - [employer] Disp W/BW Soft Possible Web Eye Exam & Treatment Refraction Advance Directives Directive Yes / No Effective Date File Name No Information Encounters Encounter Description Practice Location Reason(s) For Visit Diagnoses Date Provider Providers Copied on Encounter [facility], [address], [place], [place], [address], [place] tel:[phone] [facility] No Information 0 3-201 0 Grey OD Robb. [address] , [address], [place], [address], [place]. tel:[phone] [facility], [address], [place], [place], [address], [place] tel:[phone] [facility] No Information Aug-2 6-201 0 Grey OD Robb. [address] , [address], [place], [place], [facility], [place]. tel:[phone] [facility], [address], [place], [place], [address], [place] tel:[phone] [facility] No Information Apr-2 6-201 0 [facility] . [address], [address], [place], [place], [address], . tel:[phone] Consulting Provider: Agueda Mccarty, [address] [place], [place], [facility]. tel:[phone] [facility], [address], [place], [place], [address], [place] tel:[phone] [facility] No Information Apr-2 2-200 9 Grey OD Robb. [address] , [address], [place], [address], [place]. tel:[phone] [facility], [address], [place], [place], [address], [place] tel:[phone] [facility] No Information Sep-1 8-200 8 Grey OD Robb. [address] , [address], [place], [place], [facility], [place]. tel:[phone] [facility], [address], [place], [place], [address], [place] tel:[phone] [facility] No Information Mar-2 7-200 7 [facility] . [address], [address], [place], [place], [address], [place]. tel:[phone] Consulting Provider: Agueda Mccarty, [address] [place], [address]. tel:[phone] [facility], [address], [place], [place], [address], [place] tel:[phone] [facility] No Information 6-200 7 Grey OD Robb. [address] [facility] , [address], [place], [address], [place]. tel:[phone] [facility], [address], [place], [place], [address], [place] tel:[phone] [facility] No Information 9-200 7 Grey OD Robb. [address] [facility] , [address], [place], [address], [place]. tel:[phone] Family History Family Member Type Diagnosis Age At Onset No Information Payers Payer name Insurance type Covered libertarian ID Authoriza tion(s) No Information Social History Type Description Quantity Date Captured Comments Sex Female Smoking Status No Information Chief Complaint And Reason For Visit No Information Reason For Referral Reason For Referral No Information History Of Present Illness Encounter Date Complaint History Of Prese nt Illness No Information Functional Status Date Functional Assessmen t No Information Instructions Date Instruction Additional Infor mation No Information Assessments Type Assessment Date No Information Patient Care Teams Name Effective Dates (start - stop) Status Members No Information
--- NOTE | 2025-06-17 10:30 | ECG_ITS ---
Test Date: 2025-06-17 10:36:05 Measurements Intervals Banner Rate: 67 P: 51 SD: 137 QRS: -10 QRSD: 92 T: 67 QT: 426 QTc: 453 Interpretive Statements SINUS RHYTHM WITH OCCASIONAL VENTRICULAR PREMATURE COMPLEXES POSSIBLE LEFT ATRIAL ENLARGEMENT INCOMPLETE RIGHT BUNDLE BRANCH BLOCK LEFT VENTRICULAR HYPERTROPHY WITH ST-T CHANGE BORDERLINE R WAVE PROGRESSION, ANTERIOR LEADS BASELINE ARTIFACT- I, II, III, AVR, AVL, AVF BORDERLINE ECG No previous ECG available for comparison Electronically Signed On 06-17-2025 10:42:13 CDT by Ray Cottrell D.O.
--- OUTSIDE RECORDS SUMMARY | 2025-06-17 10:38 | XMS_ITS ---
Author Organization [facility] Address [address] [place] [address] Phone Care Team Providers Care Electronic Video Games Servicer Name Role Phone Marleen Langston APRN, PIGMENT FURNACE TENDER Primary Care Provider + Anitha Alvarez MD Unavailable [phone] Janie Mancilla MD Unavailable [phone] Alina Gurrola MD Unavailable [phone] Active Problems Problem Noted Date Diagnosed Date Carcinoma of overlapping sit es of right breast in female, estrogen receptor positive 12/12/2022 Cancer Staging:Clinical stage from 08/22/2022:Stage IIA(cT2, cN0(f), cM0, G2, ER+, NJ-, HER2-) - Signed by Janie Mancilla MD on 12/30/2022 Pathologic stage from 10/15/2022:Stage IIA(pT2, pN0(sn), cM0, G2, ER+, NJ-, HER2- , Oncotype DX score: 22) - Signed by Janie Mancilla MD on 12/12/2022 Overview (01/20/2023): Clinical and pathologic stage IIA (pT2, pNo(sn), cM0, G2, ER positive, NJ/HER2 negative, Oncotype DX score: 22) invasive lobular [...] (12/31/2022): Pathologic stage IIA (pT2, pN0, cM0) ER/NJ/HER2 positive left breast IDC status post breast [...] information found. Current Radiation Episodes * 3D WEED CONTROLLER: Right BreastOverview* First Treatment Date Latest Treatment Date Treatment Site Technique Goal Episode Provider 12/24/2022 01/14/2023 Right Breast 3D WEED CONTROLLER Curative * Linked Problems Carcinoma of overlapping sit es of right breast in female, estrogen receptor positive Treatment Courses* Course C2 12/24/2022 - 01/14/2023 Treatment Period Fraction Dose Fractions Total Dose Plans Planned R [id number] 12/24/2022 - 01/14/2023 266 cGy 4,256 cGy R Brst_Rev 12/27/2022 - 01/14/2023 266 cGy 3 ,458 cGy Reference Points Delivered R Breast_PRP 12/24/2022 - 01/14/2023 4,256 cGy Resolved Problems Problem Noted Date Diagnosed Date Resolved Date Encounter for radiotherapy 0 02/18/2023 Acute radiation dermatitis 0 02/18/2023 Adverse effect of radiation 02/18/2023 Skin infection 02/18/2023 Cystitis 02/18/2023
--- OUTSIDE RECORDS SUMMARY | 2025-06-17 10:38 | XMS_ITS | Clinical Summary ---
Author Organization [facility] Address [address] [place] [address] Care Team Providers Care Film Writer Name Role Phone Tanner Jordan MD Primary Care Prov ider Allergies No known active allergies Medications loratadine-pseu doephedrine (Claritin-D 24 Hour) 10-240 mg per 24 hr tablet Take 1 tablet by mouth daily as needed 5 Active ergocalciferol (VITAMIN D) 50,000 unit capsule Take 1 capsule (50,000 Units total) by mouth once a week Friday 0 Active docusate sodium (COLACE) 100 mg capsuleIndicati ons:constipatio n Take 1 capsule (100 mg total) by mouth 2 (two) times a day 2 Active Additional Information Patient not taking.Reported on 11/13/2022 aspirin 81 mg enteric coated tablet TAKE 1 TABLET BY MOUTH EVERY DAY 90 tablet 3 3 Active amLODIPine (NORVASC) 10 mg tablet Take 1 tablet (10 mg total) by mouth nightly 90 tablet 6 4 Active atorvastatin (LIPITOR) 80 mg tablet Take 1 tablet (80 mg total) by mouth nightly 90 tablet 6 5 05/06/20 26 Active Active Problems Problem Noted Date Diagnosed Date Coronary artery disease of n ative heart with stable angina pectoris 03/08/2022 Overview (03/08/2022): Added automatically from request for surgery [id number] Nonrheumatic aortic valve stenosis 08/15/2021 Overview (08/15/2021): Added automatically from request for surgery [id number] Encounters Date Type Department Care Team Description 06/07/2025 8:48 AM CDT - 06/07/2025 11:59 PM CDT Hospital Encounter [facility] [address] [place] [address] Right knee pain, unspecified chronicity Discharge Disposition: Discharge to home or self care 05/11/2025 9:15 AM CDT Office Visit [facility] [address] [place] [id number] Saw Zimmerman MD Coronary artery disease involving manzanita coronary artery of manzanita heart without angina pectoris (Primary Dx); S/P CABG x 1; S/P aortic valve replacement from Last 3 Months Surgical History Surgery Date Site/Laterality Comments BREAST LUMPECTOMY Left TOTAL HIP ARTHROPLASTY Bilateral Medical History Medical History Date Comments Heart murmur Breast cancer (HCC) 2009 left s/p paulette mo & radiation Nonrheumatic aortic (valve) stenosis 08/2021 Coronary artery disease Hyperlipidemia History of transfusion Family History Medical History Relation Name Comments Stroke Father Other Mother killed in an ac cident Relation Name Status Comments Father Mother Social History Tobacco Use Types Packs/Day Years Used Date Smoking Tobacco: Never Smokeless Tobacco: Never Tobacco Cessation:Counseling Given: Not Answered Alcohol Use Standard Drinks/Week Comments No 0 (1 standard drink = 0.6 oz pur e alcohol) AUDIT-C Answer Date Recorded Q1: How often do you have a drink containing alc ohol? Monthly or less 03/25/2022 Average Number of Drinks Not on file 022 Frequency of Binge Drinking Not on file 03/15 Comments No Sex and Gender Information Value Date Recorded Sex Assigned at Not on file Legal Sex Female 12:18 PM PRICING MANAGER Gender Identity Not on file Sexual Orientation Not on file Obstetrics History Last Filed Vital Signs Vital Sign Reading Time Taken Comments Blood Pressure 130/68 05/11/2025 9:11 AM CDT Pulse 82 05/11/2025 9:11 AM CDT Temperature 36 C (96.8 F) 04/18/2022 12:27 PM CDT Respiratory Rate 16 07/22/2024 3:07 PM PRICING MANAGER Oxygen Saturation 98% 05/11/2025 9:11 AM CDT Inhaled Oxygen Concentration - - Weight 70.2 kg (154 lb 12.8 oz) 05/11/2025 9:11 AM CDT Height 162.6 cm (5' 4) 05/11/2025 9:11 AM CDT Body Mass Index 26.57 05/11/2025 9:11 AM CDT Plan of Treatment Health Maintenance Due Date Last Done Comments Breast Cancer Screening-Mammogram 1954 Colon Cancer Screening-Colonoscopy 1954 Depression Screening 1954 Hepatitis C Screening 1954 Osteoporosis Screening-Bone Density Scan 1954 DTaP/Tdap/Td Vaccine (1 - Tdap) 1965 Hepatitis B Screening 1972 Pneumococcal vaccine 65+ (1 of 2 - PCV) 1973 Zoster Vaccine (1 of 2) 2004 Well Visit 65+ 2019 Fall Risk Assessment 03/29/2023 03/29/2022 Covid-19 Vaccine (2 - season) 2025 Influenza Vaccine (#1) 2025 Medical Devices Implanted Type Area Biomedical Manager Device Identifier Shelf Expiration Date Model / Serial / Lot [employer] Inspiris Resilia Aortic Valve 21mm [id number] - [id number] - [id number] Implanted:Qty: 1 on 03/25/2022 by Jaylan Rahman MD at [facility] N/A: Heart [employer] 06/27/2025 [id number] / [id number] / Procedures Procedure Name Priority Date/Time Associated Diagnosis Comments MRI KNEE RIGHT WO CONTRAST Schedule Routine, Read Routine (OP Routine) 06/07/2025 9:39 AM CDT Right knee pain, unspecified chronicity POCT LIPID PANEL Routine 05/11/2025 10:0 0 AM CDT Coronary artery disease involving manzanita coronary artery of manzanita heart without angina pectoris from Last 3 Months Results * MRI Knee Right WO Contrast (06/07/2025 9:39 AM CDT) Anatomical Region Laterality Modality Lower Extremities Right Magnetic Reson ance 06/07/2025 12:1 0 PM CDT Narrative 06/07/2025 3:53 PM CDT EXAM DESCRIPTION: MRI KNEE RIGHT WO CONTRAST REASON FOR STUDY: M25.561 Right knee pain around the patella and lateral pain , started 2 months ago , no surgery TECHNIQUE: Multiplanar, multisequence MRI of the right knee was performed without contrast. COMPARISON: None available FINDINGS: In the medial compartment, the meniscus is intact. Minimal chondrosis. In the lateral compartment, there is complex tearing of the meniscal body with predominant horizontal component. Deep partial and full-thickness cartilage loss of the tibial plateau and the posterior weight-bearing femoral condyle is present with multifocal subchondral edema. In the patellofemoral compartment, there is partial-thickness cartilage loss of the inferior patella. Mild lateral patellar subluxation. Mild edema involving the superolateral aspect of Hoffa's fat pad. The cruciate and collateral ligaments are intact. The extensor mechanism is normal. The popliteus tendon is intact. Small effusion is present. There are no loose bodies. IMPRESSION: 1. Complex tear of the right lateral meniscal body with predominant horizontal component. 2. Moderate to severe lateral predominant tricompartmental right knee chondrosis. 3. Small right knee effusion. 4. Mild edema involving the superolateral aspect of Hoffa's fat pad, which can be associated with lateral femoral condyle patellar tendon friction syndrome. THIS IS AN ELECTRONICALLY VERIFIED FINAL REPORT 06/07/2025 3:53 PM - Electronically signed by Tobin Freeman M.D. MF: [id number] Report ID: [id number] Reading Location: [id number] Procedure Note Tobin Freeman MD - 06/07/2025 EXAM DESCRIPTION: MRI KNEE RIGHT WO CONTRAST REASON FOR STUDY: M25.561 Right knee pain around the patella and lateral pain , started 2 months ago, no surgery TECHNIQUE: Multiplanar, multisequence MRI of the right knee wasperformed without contrast. COMPARISON: None available FINDINGS: In the medial compartment, the meniscus is intact. Minimal chondrosis. In the lateral compartment, there is complex tearing of the meniscal bodywith predominant horizontal component. Deep partial and full-thicknesscartilage loss of the tibial plateau and the posterior weight-bearing femoralcondyle is present with multifocal subchondral edema. In the patellofemoral compartment, there is partial-thickness cartilageloss of the inferior patella. Mild lateral patellar subluxation. Mild edema involving the superolateral aspect of Hoffa's fat pad. The cruciate and collateral ligaments are intact. The extensor mechanismis normal. The popliteus tendon is intact. Small effusion is present. Thereare no loose bodies. IMPRESSION: 1. Complex tear of the right lateral meniscal body with predominant horizontal component. 2. Moderate to severe lateral predominant tricompartmental right knee chondrosis. 3. Small right knee effusion. 4. Mild edema involving the superolateral aspect of Hoffa's fat pad,which can be associated with lateral femoral condyle patellar tendon friction syndrome. THIS IS AN ELECTRONICALLY VERIFIED FINAL REPORT 06/07/2025 3:53 PM - Electronically signed by Tobin Freeman M.D. MF: [id number] Report ID: [id number] Reading Location: [place] [address] Tree Olivo MD IMG MRI PROCEDURES Final Re sult * POCT lipid panel (05/11/2025 10:00 AM CDT) Cholesterol, POC 192 <200 MG/DL HDL, POC 60 >=40 mg/dL Triglycerides, POC 97 <=149 mg/dL LDL Cholesterol POC 113 <=129 mg/dL Chol/HDL Ratio, POC 1.9 NONE Non-HDL Cholesterol, POC 132 NONE mg/dL Cholesterol Total, POC 192 30 - 199 mg/dL Capillary blood 05/11/2025 1 0:00 AM CDT Swa Zimmerman MD POINT OF CARE TEST ORDERABLES Fi nal Result from Last 3 Months Insurance [facility] MEDICARE [facility] MEDICARE [facility] MEDICARE [employer] MEDICARE Advance Directives For more information, please contact: [phone] * Full Code (Latest Code Status on File) Date Activated Date Inactivated Comments 03/25/2022 1:42 PM 03/29/2022 9:25 PM Care Teams Film Writer Relationship Specialty Start Date End Date Tanner Jordan MD PCP - General 12/14/17
--- OUTSIDE RECORDS SUMMARY | 2025-06-17 10:38 | XMS_ITS | Clinical Summary ---
Author Organization [facility] Address [address] [place] [address] Phone Care Team Providers Care Materials Planner/Production Planner Name Role Phone Marleen Langston APRN, HAND THERAPIST Primary Care Provider + Anitha Alvarez MD Unavailable [phone] Janie Mancilla MD Unavailable [phone] Alina Gurrola MD Unavailable [phone] Allergies No known active allergies Medications aspirin EC 81 MG Tablet Delayed Response Take 81 mg by mouth daily. 10/21/2022 Active atorvastatin (LIPITOR) 80 MG Tablet Take 80 mg by mouth nightly. 11/13/2022 Active ergocalciferol (VITAMIN D) 87817 UNIT Capsule TAKE 1 CAPSULE BY MOUTH [...] from 08/22/2022:Stage IIA(cT2, cN0(f), cM0, G2, ER+, NV-, HER2-) - Signed by Janie Mancilla MD on 12/30/2022 Pathologic stage from 10/15/2022:Stage IIA(pT2, pN0(sn), cM0, G2, ER+, NV-, HER2- , Oncotype DX score: 22) - Signed by Janie Mancilla MD on 12/12/2022 Overview (01/20/2023): Clinical and pathologic stage IIA (pT2, pNo(sn), cM0, G2, ER positive, NV/HER2 negative, Oncotype DX score: 22) invasive lobular [...] (12/31/2022): Pathologic stage IIA (pT2, pN0, cM0) ER/NV/HER2 positive left breast IDC status post breast [...] Comments Blood Pressure 151/77 09/17/2024 9:10 AM ELECTRO MECHANICAL ENGINEER Pulse 65 09/17/2024 9:10 AM ELECTRO MECHANICAL ENGINEER Temperature 36.4 C (97.6 F) 09/17/2024 9:10 AM ELECTRO MECHANICAL ENGINEER Respiratory Rate 16 09/17/2024 9:10 AM ELECTRO MECHANICAL ENGINEER Oxygen Saturation 100% 09/17/2024 9:10 AM ELECTRO MECHANICAL ENGINEER Inhaled Oxygen Concentration - - Weight 67.9 kg (149 lb 9.6 oz) 09/17/2024 9:10 A M ELECTRO MECHANICAL ENGINEER Height 162.6 cm (5' 4) 09/17/2024 9:10 AM ELECTRO MECHANICAL ENGINEER Body Mass Index 25.68 09/17/2024 9:10 AM ELECTRO MECHANICAL ENGINEER Plan of Treatment Upcoming Encounters Date Type Department Care Team (Late st Contact Info) Description 09/16/2025 8:00 AM ELECTRO MECHANICAL ENGINEER Office Visit [facility] [address] [place] [phone] Janie Mancilla MD [address] [place] [address] Discharge Disposition: Discharged to home or Selfcare [...] (2 - Charly risk series) 06/25/2021 05/28/2021 Medicare Initial AWV [id number] 09/15/2022 Influenza Immunization (#1) 2025 Mammogram 09/14/2025 09/14/2024, [...] topic Insurance MEDICARE C [employer]ET[employer] Care Teams Materials Planner/Production Planner Relationship Specialty Start Date End Date Marleen Langston, CLINICAL OPERATIONS CONSULTANT, HAND THERAPIST PCP - General Obstetrics & Gynecology 03/12/17 Anitha Alvarez MD Consulting Physician General Surgery 12/12/22 Janie Mancilla MD [address] [place] [address] Consulting Physician Radiation Oncology 12/12/22 Alina Gurrola MD [address] [facility] [address] [place] [address] Consulting Physician Medical Oncology 08/27/23
== END 2025-06-17 10:27 | disposition home or self-care (01) ==
LOC: ANHSURGERY 10:29
PROVIDERS: PCP Family Medicine; Visit Provider Orthopaedic Surgery
DX: E78.00 Pure hypercholesterolemia, unspecified (principal); Z01.818 Encounter for other preprocedural examination; I45.10 Unspecified right bundle-branch block; R94.31 Abnormal electrocardiogram [ECG] [EKG]
CPT/HCPCS: 93005

== ENCOUNTER 2025-07-19 15:30 | Outpatient (RCR) | payer MEDICARE, SELFPAY ==
--- NOTE | 2025-06-24 15:12 | OPREHPOC ---
Outpatient Therapy Plan of Care This is a Multidisciplinary Plan of Care that may contain components documented by all disciplines (PT, OT, and ST.) PT Problem 1 PT Problem #1 Knowledge Deficit PT Goal 1 Goal / Goal Update [place] with HEP Target Visit 4 PT Goal 2 Goal / Goal Update Report no knee pain greater than 2/10 with ambulation Target Visit 8 PT Problem 2 PT Problem #2 Impaired Range of Motion PT Goal 1 Goal / Goal Update 1. Achieve terminal right knee extension ROM 2. Achieve 130+ degrees R knee flexion pain free 3. Demonstrate no hamstring restriction on R LE limiting knee extension and stride Target Visit 8 PT Problem 3 PT Problem #3 Impaired Gait PT Goal 1 Goal / Goal Update Ambulate with even stride length bilaterally Target Visit 8
--- NOTE | 2025-06-24 15:12 | PTOPEVAL1 ---
Assessment and note entered by Augustine Valadez, PT Evaluation Information Assessment Status Evaluation Diagnosis S83.281A -R meniscus tear ICD-10 Condition Codes (PT) Pain in right knee M25.561 Onset February 2025 Subjective Information Reports that she has been having issues for about 4 months. She has progressively having a harder and harder time with walking and performing functional activity. She is having a lot of difficulty with knee flexion including squatting and lunging. She has had injections, prednisone, and pain medication to help. She has trouble sleeping in bed at night and has to sleep in the recliner. She has not done any therapy to this point but she did initiate some treatment with prior home exercises this summer. 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 She has been unable to do a lot activity and has had to be off work since May. She cannot do steps at all right now. Reported Pain Level Pain Score 8: Self Report Assessment PT Clinical Summary Patient presents with signs and symptoms consistent with meniscus tear affecting gait cycle , functional knee motion, and muscle activation. She does not have a hard end feel with motion and is most limited by pain in both flexion and extension. At this point therapy would focus on achieving full functional knee motion especially into extension, but my concern is that presence of meniscus tissue may limit progress with joint motion and cause chronic irritation that would continue to limit functional progress. Plan of Care Interventions Electrical Stimulation,Gait Training,Neuro Re- education,Therapeutic Activities,Therapeutic Exercise PT Services Indicated Yes Treatment Frequency and 2x/week for 8 visits Duration These treatments will address the objective and functional deficits as defined above. The patient will be advanced safely and appropriately in order for the patient to progress towards his/her prior level of function. Additional exercises will be introduced and as well as a comprehensive home exercise program upon discharge, if needed, ?to ensure carryover of functional gains achieved in the clinic. This treatment plan has been reviewed and agreement upon by the patient.
--- NOTE | 2025-07-19 16:27 | PTOPDC ---
Assessment and note entered by Augustine Valadez, PT Evaluation Information Assessment Status Discharge Diagnosis S83.281A -R meniscus tear ICD-10 Condition Codes (PT) Pain in right knee M25.561 Onset February 2025 Subjective Information Patient states that she is scheduled for surgery on 08/15/25. Reports that therapy has helped significantly but still having some pain and gait alterations. Will be discharging at this time. Reported Pain Level Pain Score Mild Pain: Grijalva Cabrera Assessment PT Clinical Summary Patient has hit majority of personal goals that she had prior to surgery. She is currently scheduled for surgery on 08/15/25. Plans to discharge at this time with return to PT following surgery. Plan of Care PT Services Indicated Yes
== END 2025-07-20 16:05 | disposition home or self-care (01) ==
LOC: ANHGOSHPT 15:30
PROVIDERS: PCP Family Medicine; Visit Provider Orthopaedic Surgery
DX: S83.281A Other tear of lateral meniscus, current injury, right knee, initial encounter (principal); M25.661 Stiffness of right knee, not elsewhere classified
CPT/HCPCS: 97110; 97112; 97140; 97161

== ENCOUNTER 2025-08-15 02:04 | Day surgery (SDC) | payer MEDICARE, SELFPAY ==
--- NOTE | 2025-06-16 07:00 | P.HP_ITS ---
H&P: HPI History of Present Illness Date/Time: 06/16/25 07:00 Chief Complaint: Patient is knee pain right. She has meniscal tear of the catching locking and pain. She has failed conservative treatment I would like to consider knee arthroscopy. Review of Systems Musculoskeletal: Musculoskeletal: Reports arthralgias, Reports joint swelling and Reports stiffness Neurologic: Reports abnormal gait PMFSH Past Medical History Medical History (Reviewed 06/14/25 @ 07:00 by Gayatri Bettencourt [facility]) Abnormal Pap smear of cervix 04/06/21, HPV pos type 18/45 delivery delivered #1 01/28/89 Male 7 lbs #2 06/30/92 Female 7 lbs Stroke Breast cancer Surgical History Surgical History S/P lumpectomy, right breast x 2 History of section, classical x 2 History of lumpectomy of left breast History of bilateral hip replacements R 2008 Dr Rashid (previously with [facility]) Family History Family History Father Cerebrovascular accident Social History Social History (Updated 06/14/25 @ 07:54 by Clare Miller CMA) Smoking status: Never smoker Alcohol intake: never Substance use: never Lack of Transportation: No Lack of Food: Never True Current Housing: I Have Housing Concerned About Future Housing: No Difficulty Paying Gas/Electric Bills: No Difficulty Paying for Meds: No Currently Unemployed: No Education: Associate Degree Difficulty w/ Childcare or Family Care: No Living arrangements: with family Occupation/Education: occupation Gender identity (if verbalized by the patient): Female Sexual Orientation (if Verbalized by the Patient): Straight or Heterosexual Spiritual care concerns: No Meds Home Medications and Allergies Home Medications ?Medication ?Instructions ?Recorded ?Confirmed ?Type cholecalciferol (vitamin D3) 1,250 1,250 mcg PO WEEKLY 04/06/21 06/14/25 History mcg (50,000 unit) capsule loratadine-pseudoephedrine ER 10 1 tablet PO DAILY 06/14/25 History mg-240 mg tablet,extended [id number] (Claritin-D 24 Hour) aspirin 81 mg tablet,delayed 81 mg PO DAILY 12/19/22 0 06/14/25 History release atorvastatin 80 mg tablet 80 mg PO DAILY 12/19/22/ History cyclobenzaprine 5 mg tablet 5 mg PO TID PRN muscle spa sm #30 05/11/25 06/14/25 Rx tabs acetaminophen 500 mg capsule 1,000 mg (2 x 500 mg) PO Q6H PRN 05/21/25 06/14/25 Rx pain #30 caps ibuprofen 600 mg tablet 600 mg PO TID PRN pain #30 t abs 05/21/25 06/14/25 Rx lidocaine 4 % topical patch 1 patch topical DAILY PRN pain #10 05/21/25 06/14/25 Rx ea methocarbamol 750 mg tablet 750 mg PO HS #7 tabs 05/2106/14/25 Rx Allergies Allergy/AdvReac Type Severity Reaction Status Date / Time No Known Allergies Allergy Verified 06/14/25 07:00 Exam Narrative: On exam she has catching locking and pain in her knee. Tenderness medially and a positive Luanne's side. Neurologically she is intact. She walks with an antalgic gait. Eyes: General: appearance normal, both eyes and all related structures Neck: Neck: supple Resp: Effort & Inspection: normal respiratory effort Cardio: Rate: regular rate Rhythm: regular rhythm Femur X-Ray 05/05/25 Knee X-Ray 06/14/25 Orthopedics Result Report 06/14/25 Assessment and Plan Assessment and plan (1) Acute lateral meniscus tear of right knee: Code(s): S83.281A - Other tear of lateral meniscus, current injury, right knee, initial encounter Status: Acute Assessment and Plan: Patient has meniscal tear right knee. She has mechanical symptoms the catching and locking. She has failed conservative treatment. She would like to consider arthroscopic intervention. I discussed risks, benefits, limitations, and alternatives the patient in detail she agrees and understands. Will proceed with arthroscopy of the right knee partial meniscectomy proceed as indicated.
[2025-06-16 11:23] VITALS: BMI 24.2
--- NOTE | 2025-06-16 11:44 | PC.NURSE ---
[facility] has started construction of its new state of the art ER which will open Spring 2026. With this, we anticipate parking may be a challenge for some our surgical patients and families. Parking spaces are limited but are available for all Surgical, obstetrics, and ER patients sharing this lot. If you arrive and find you are having a hard time finding a parking space, please note that we understand the challenges, please drive around the hospital and park near Hospital Entrance 1. When you enter this entrance, you can ask a volunteer to direct or take you back to the surgical waiting area to check in. We appreciate everyone?s understanding of these expected challenges while we build for your future. Report to the Outpatient Waiting Room, entrance under the green pavilion located off [address], at time __6:00AM___ on date __06/20/25___. Planned Procedure Time: ___7:30AM___.? Time changes happen often and if your time is changed the preop area will call you the afternoon before. - You and your visitor will be asked to self-screen and do not enter if you have any COVID symptoms. Please call surgeon if you need to reschedule. - A mask is optional within the hospital at this time. Patients may have clear liquids (water, carbonated beverages, clear teas, apple juice) until 3 hours prior to surgery (4:30AM) with a maximum of 20 ounces. - No food from midnight until time of surgery and no smoking, or chewing tobacco (or any form of nicotine). No chewing gum, candy or mints. Take only the following medications with a SIP of water on the morning of surgery: ____NONE DO NOT STOP ANY OF YOUR OTHER PRESCRIPTION MEDICATIONS PRIOR TO SURGERY EXCEPT THE FOLLOWING Hold all vitamins and supplements for 3 days per anesthesiologist.-LAST DOSE 06/16/25 Medications to discontinue per physician ____HOLDING ASPIRIN 5 DAYS PRE-OP PER DR COPPOLA Date to take last dose 07/14/25 Please no make-up, nail czech, hairspray, perfume, deodorant, or body powder the day of surgery.? No jewelry (including any body piercings) or valuables the day of surgery, leave them at home.? Please take a shower or bath the night before, or the morning of, surgery with an antibacterial soap.? Wear comfortable, loose fitting clothing. - Jewelry must be removed prior to entering the operating room.? Rings and piercings that are not removed may be cut off. - The hospital will not accept responsibility for valuables.? - Please leave all valuables, including medications, at home the day of surgery. If you are going home after surgery, a licensed commercial driver's license driver must drive you home.? - NO public transportation without another adult if you receive anesthesia. - We recommend that an adult stay with you for 24 hours following discharge. - We also recommend that you do not drive, make important decision, drink alcoholic beverages, or take any drugs that were not prescribed by your health care provider for at least 24 hours after your discharge time. Follow any additional instructions given to you from your surgeon. Telephone instructions given to ____PATIENT and asked if any additional questions and then verbalized understanding. Patient advised to call surgeon office or pre surgery nurse liaison [phone] if any additional questions.
[2025-08-03 14:28] VITALS: BMI 25.7
--- NOTE | 2025-08-03 14:46 | PC.NURSE ---
[facility] has started construction of its new state of the art ER which will open Spring 2026. With this, we anticipate parking may be a challenge for some our surgical patients and families. Parking spaces are limited but are available for all Surgical, obstetrics, and ER patients sharing this lot. If you arrive and find you are having a hard time finding a parking space, please note that we understand the challenges, please drive around the hospital and park near Hospital Entrance 1. When you enter this entrance, you can ask a volunteer to direct or take you back to the surgical waiting area to check in. We appreciate everyone?s understanding of these expected challenges while we build for your future. Report to the Outpatient Waiting Room, entrance under the green pavilion located off [address], at time __8:30AM____ on date ___08/15/25___. Planned Procedure Time: __10:30AM .? Time changes happen often and if your time is changed the preop area will call you the afternoon before. - You and your visitor will be asked to self-screen and do not enter if you have any COVID symptoms. Please call surgeon if you need to reschedule. - A mask is optional within the hospital at this time. Patients may have clear liquids (water, carbonated beverages, clear teas, apple juice) until 3 hours prior to surgery (7:30AM) with a maximum of 20 ounces. - No food from midnight until time of surgery and no smoking, or chewing tobacco (or any form of nicotine). No chewing gum, candy or mints. Take only the following medications with a SIP of water on the morning of surgery: ___NONE DO NOT STOP ANY OF YOUR OTHER PRESCRIPTION MEDICATIONS PRIOR TO SURGERY EXCEPT THE FOLLOWING Hold all vitamins and supplements for 3 days per anesthesiologist. LAST DOSE 08/11/25 Medications to discontinue per physician __HOLD ASPIRIN 7 DAYS PRE-OP PER DR COPPOLA(PER PATIENT)___ Date to take last dose____08/07/25 Please no make-up, nail turkmen, hairspray, perfume, deodorant, or body powder the day of surgery.? No jewelry (including any body piercings) or valuables the day of surgery, leave them at home.? Please take a shower or bath the night before, or the morning of, surgery with an antibacterial soap.? Wear comfortable, loose fitting clothing.? - Jewelry must be removed prior to entering the operating room.? Rings and piercings that are not removed may be cut off. - The hospital will not accept responsibility for valuables.? - Please leave all valuables, including medications, at home the day of surgery. If you are going home after surgery, a licensed sales route driver must drive you home.? - NO public transportation without another adult if you receive anesthesia. - We recommend that an adult stay with you for 24 hours following discharge. - We also recommend that you do not drive, make important decision, drink alcoholic beverages, or take any drugs that were not prescribed by your health care provider for at least 24 hours after your discharge time. Follow any additional instructions given to you from your surgeon. Telephone instructions given to ___PATIENT and asked if any additional questions and then verbalized understanding. Patient advised to call surgeon office or pre surgery nurse liaison [phone] if any additional questions.
--- NOTE | 2025-08-09 11:13 | P.HP_ITS ---
H&P: HPI History of Present Illness Date/Time: 08/09/25 11:13 Chief Complaint: Patient is knee pain right. She has catching locking and pain with any manipulation. She has failed conservative treatment. She would like to consider arthroscopic intervention. Review of Systems Musculoskeletal: Musculoskeletal: Reports arthralgias, Reports joint swelling and Reports stiffness Neurologic: Reports abnormal gait PMFSH Past Medical History Medical History Abnormal Pap smear of cervix 04/06/21, HPV pos type 18/45 delivery delivered #1 01/28/89 Male 7 lbs #2 06/30/92 Female 7 lbs Stroke Breast cancer Surgical History Surgical History S/P lumpectomy, right breast x 2 History of section, classical x 2 History of lumpectomy of left breast History of bilateral hip replacements R 2008 Dr Rashid (previously with [facility]) Family History Family History Father Cerebrovascular accident Social History Social History (Updated 06/14/25 @ 07:54 by Clare Miller CMA) Smoking status: Never smoker Alcohol intake: never Substance use: never Lack of Transportation: No Lack of Food: Never True Current Housing: I Have Housing Concerned About Future Housing: No Difficulty Paying Gas/Electric Bills: No Difficulty Paying for Meds: No Currently Unemployed: No Education: Associate Degree Difficulty w/ Childcare or Family Care: No Living arrangements: with family Additional living arrangements comments: [place] Occupation/Education: occupation Gender identity (if verbalized by the patient): Female Sexual Orientation (if Verbalized by the Patient): Straight or Heterosexual Spiritual care concerns: No Meds Home Medications and Allergies Home Medications ?Medication ?Instructions ?Recorded ?Confirmed ?Type cholecalciferol (vitamin D3) 1,250 1,250 mcg PO WEEKLY 04/06/21 06/16/25 History mcg (50,000 unit) capsule loratadine-pseudoephedrine ER 10 1 tablet PO DAILY PRN allergy 04/06/21 06/16/25 History mg-240 mg tablet,extended symptoms [id number] (Claritin-D 24 Hour) aspirin 81 mg tablet,delayed 81 mg PO DAILY 12/19/22 1 History release atorvastatin 80 mg tablet 80 mg PO DAILY 12/19/22 10/11/09 History cyclobenzaprine 5 mg tablet 5 mg PO Q8H PRN [facility]LE [facility] 08/03/25 08/03/25 History Allergies Allergy/AdvReac Type Severity Reaction Status Date / Time No Known Allergies Allergy Verified 08/03/25 14:25 Exam Narrative: On exam she is tender laterally. She has catching locking and pain with any manipulation. The knee is stable. Neurologically she is intact. She walks with an antalgic gait. Has pain with any motion. Eyes: General: appearance normal, both eyes and all related structures Neck: Neck: supple Resp: Effort & Inspection: normal respiratory effort Cardio: Rate: regular rate Rhythm: regular rhythm Femur X-Ray 05/05/25 Knee X-Ray 06/14/25 Orthopedics Result Report 06/14/25 Assessment and Plan Assessment and plan (1) Acute lateral meniscus tear of right knee: Code(s): S83.281A - Other tear of lateral meniscus, current injury, right knee, initial encounter Status: Acute Assessment and Plan: Patient is knee pain right. She has a complex tear of the lateral meniscus according to her MRI scan. She has failed conservative treatment like to consider arthroscopic intervention. I have discussed this with her including the risks, benefits, limitations, and alternatives in detail. She would like to proceed will proceed per her request. Surgery will be arthroscopy of the right knee with partial meniscectomy proceed as indicated.
[2025-08-15] VITALS (8 sets, daily range): BP systolic 84–153; BP diastolic 45–90; PULSE 56–97; RESP 8–16; TEMP 36.1–36.5; O2SAT 96–100
--- OUTSIDE RECORDS SUMMARY | 2025-08-15 02:07 | XMS_ITS | Clinical Summary ---
Author Organization [facility] Address [address] [place] [address] Phone Care Team Providers Care Chaser Apprentice Name Role Phone Unavailable Unavailable Unavailable Reason for Visit and Chief Complaint DEXASCAN Problems Includes: Problems addressed during this encounter and other active Problems All Visits Onset Date Resolved Date Provider Condition S tatus Salpingo-oophorectomy Bilateral 02/08/2015 AMADO RUSHING NP-BC Active Last Documented On 5 10:36AM ; [facility] HX OF BREAST MALIGNANCY 12/13/2009 AMADO Mora NP-BC Active Last Documented On 02/08/2015 10:44AM ; [facility] Note: SENTINEL NODE NEGATIVE - left side Allergic Rhinitis 12/06/2009 ELIZABETH ARNOLD M.D. Active Last Documented On 0 3:42PM ; [facility] Arthritis 12/06/2009 ELIZABETH ARNOLD M.D. A ctive Last Documented On 0 3:41PM ; [facility] Plan of Treatment No Plan of Treatment Recorded Assessments Includes: Assessments from this encounter No Assessments Recorded Medical Equipment - Implanted Devices Includes: Current Devices No Medical Equipment Recorded Medications Includes: Medications discussed during this encounter and other current Medications Current Medications (continue as prescribed) Claritin-D 12 Hour 5-120MG O ral Tablet Extended Release 12 Hour 02/24/2017 Provider: Diagnosis: Last Documented On 7 11:06AM By LUIS FERNANDO YANG ; [facility] Vitamin D3 71844 UNIT Capsule, conventional 02/08/2015 Provider: Diagnosis: Last Documented On 10:42AM By LUIS FERNANDO YANG ; [facility] Medications Administered Includes: Administered Medications from this encounter No Administered Medications Recorded Results Includes: Results discussed during this encounter No Results Recorded For Specified Dates History of Present Illness Includes: History of Present Illness from this encounter No History of Present Illness Recorded Social History No Social History Recorded - Smoking Status Unknown Medical History Includes: Medical History addressed during this encounter No Medical History Recorded Family History Includes: Family History addressed during this encounter No Family History Recorded Review of Systems Includes: Review of Systems from this encounter No Review of Systems Recorded Mental Status Includes: Mental Status from this encounter No Mental Status Recorded Functional Status Includes: Functional Status from this encounter No Functional Status Recorded Physical Exam Includes: Physical Exam from this encounter No Physical Exam Recorded Allergies Includes: Active Allergies No Known Allergies Encounters Encounter Provider Location Date Check-In Time Check-Out Time Diagnosis KIRA RUSHING NP-BC [facility] SEISMOGRAPH OPERATOR 03/25/2019 9:54AM 10:11AM Clinical Notes Includes: Clinical Notes from this encounter No Clinical Notes Recorded
--- OUTSIDE RECORDS SUMMARY | 2025-08-15 02:07 | XMS_ITS | Clinical Summary ---
Author Organization [facility] Address [address] [place] [address] Phone Care Team Providers Care Physician Compensation Analyst Name Role Phone Unavailable Unavailable Unavailable Reason for Visit and Chief Complaint gynecologic annual exam - The Chief Complaint is: Annual Problems Includes: Problems addressed during this encounter and other active Problems All Visits Onset Date Resolved Date Provider Condition S tatus Salpingo-oophorectomy Bilateral 02/08/2015 AMADO RUSHING [facility]- Active Last Documented On 5 10:36AM ; [facility] HX OF BREAST MALIGNANCY 12/13/2009 AMADO Mora [facility]- Active Last Documented On 02/08/2015 10:44AM ; [facility] Note: SENTINEL NODE NEGATIVE - left side Allergic Rhinitis 12/06/2009 ELIZABETH ARNOLD M.D. Active Last Documented On 0 3:42PM ; [facility] Arthritis 12/06/2009 ELIZABETH ARNOLD M.D. A ctive Last Documented On 0 3:41PM ; [facility] Plan of Treatment - Referred to: [facility] - GI - Screening colonoscopy due! - Last Documented On 03/12/2019 10:37AM ; [facility] - Follow-up visit 1 year or as needed - Last Documented On 03/12/2019 10:37AM ; [facility] - Clinical summary provided to patient - Last Documented On 03/12/2019 10:37AM ; [facility] - Transition in care, clinical summary provided - Last Documented On 03/12/2019 10:37AM ; [facility] Per new [facility]P guidelines, pap was deferred today. This was d/w pt. and pt. is agreeable to this plan. - Last Documented On 03/12/2019 10:37AM ; [facility] Pending Tests Order Diagnosis Results Due Ordering P channing Outside Procedures Colonoscopy Encounter for screening for malignant neoplasm of rectum 04/11/19 AMADO Russell [facility]- Last Documented On 1 9:37AM ; [facility] Instructions to patient Instructions for patient : B reast Self Exam discussed Last Documented On 9 10:11AM ; [facility] Colonoscopy Handout given to patient Last Documented On 9 10:12AM ; [facility] Education and Decision Aids were provided during visit for: Patient Education: Daily lauren cium and vitamin D Last Documented On 9 10:11AM ; [facility] Patient Education: weight be aring exercise Last Documented On 9 10:11AM ; [facility] Assessments Includes: Assessments from this encounter Findings - NORMAL FEMALE EXAM - Last Documented On 03/12/2019 10:37AM ; [facility] - Screening Malig. Neoplasm Rectum - Last Documented On 03/12/2019 10:37AM ; [facility] Instructions Includes: Instructions from this encounter Instructions to patient Instructions for patient : B reast Self Exam discussed Last Documented On 9 10:11AM ; [facility] Colonoscopy Handout given to patient Last Documented On 9 10:12AM ; [facility] Education and Decision Aids were provided during visit for: Patient Education: Daily lauren cium and vitamin D Last Documented On 9 10:11AM ; [facility] Patient Education: weight be aring exercise Last Documented On 9 10:11AM ; [facility] Medical Equipment - Implanted Devices Includes: Current Devices No Medical Equipment Recorded Medications Includes: Medications discussed during this encounter and other current Medications Current Medications (continue as prescribed) Claritin-D 12 Hour 5-120MG O ral Tablet Extended Release 12 Hour 02/24/2017 Provider: Diagnosis: Last Documented On 7 11:06AM By LUIS FERNANDO YANG ; [facility] Vitamin D3 08417 UNIT Capsule, conventional 02/08/2015 Provider: Diagnosis: Last Documented On 5 10:42AM By LUIS FERNANDO YANG ; [facility] Medications Administered Includes: Administered Medications from this encounter No Administered Medications Recorded Vital Signs Includes: Vital Signs from this encounter Vital Name 03/12/2019 10:19A Blood Pressure Sitting L 142/70 BP Cuff Size Regular Height (in) 62 Weight (lb) 164 Body Mass Index (kg/m2) 30.0 Body Surface Area (m2) 1.8 Last Documented: On 03/12/2019 10:21A M ; [facility] Results Includes: Results discussed during this encounter THINPREP TIS AND HPV mRNA E6/E7 [employer] Ordered by AMADO HENSLEY on 02/13 Collected: 02/26/2019 Reported: 03/11/20 19 12:13 Last Documented On 9 2:42PM ; [facility] Reviewed by AMADO SAPP on 03/11/2019; All test results are final unless otherwise noted. COMMENT See Note None Last Documented On 9 2:42PM ; [facility] Note: EXPLANATORY NOTE: The Pap is a screening test for cervical cancer. It is not a diagnostic test and is subject to false negative and false positive results. It is most reliable when a satisfactory sample, regularly obtained, is submitted with relevant clinical findings and history, and when the Pap result is evaluated along with historic and current clinical information. HPV mRNA E6/E7 TNP None Status: Correction Last Documented On 9 2:42PM ; [facility] Note: => REVISED: Change in test result( s) Test not performed.An identification discrepancy exists between therequisition and the specimen. PLEASE DISREGARD PREVIOUSLY REPORTED INFORMATION BELOW:(The information below was originally reported on 03/04/2019 at 10:05 AM)HPV mRNA E6/E7 Not Detected SOURCE: Cervix, Endocervix N (Normal) Last Documented On 9 2:42PM ; [facility] CLINICAL INFORMATION: Information not provided N (Normal) Last Documented On 9 2:42PM ; [facility] LMP: NONE GIVEN N (Normal) Last Documented On 9 2:42PM ; [facility] PREV. PAP: NONE GIVEN N (Normal) Last Documented On 9 2:42PM ; [facility] PREV. BX: NONE GIVEN N (Normal) Last Documented On 9 2:42PM ; [facility] STATEMENT OF ADEQUACY: TNP None Status: Correction Last Documented On 9 2:42PM ; [facility] Note: => REVISED: Change in test result( s) TEST(S) NOT PERFORMED: STATEMENT OF ADEQUACY: Test cancelled per client request.Reason for revised report: Per discussion withclient. PLEASE DISREGARD PREVIOUSLY REPORTED INFORMATION BELOW:(The information below was previously reported on 03/04/2019 at 10:05 AM)STATEMENT OF ADEQUACY: Satisfactory for evaluation. Endocervical/transformation zone component present. INTERPRETATION/RESULT: Unable to provide interpretation, see adequacy statement. Reason for revised report: Per discussion with client. => REVISED: Change in test result(s) None Status: Correction Last Documented On 9 2:42PM ; [facility] Note: PLEASE DISREGARD PREVIOUSLY REPORT ED INFORMATION BELOW:(The information below was previously reported on 03/04/2019 at 10:05 AM)INTERPRETATION/RESULT: Negative for intraepithelial lesion or malignancy. COMMENT: Reason for revised report: Per discussion with client. => REVISED: Change in test result(s) N (Normal) Status: Correction Last Documented On 9 2:42PM ; [facility] Note: PLEASE DISREGARD PREVIOUSLY REPORT ED INFORMATION BELOW:(The information below was previously reported on 03/04/2019 at 10:05 AM)COMMENT: This Pap test has been evaluated with computer assisted technology. KEG HEADER: CORA CT(ASCP) CT screening location: [place] [id number] [place] [id number] N (Normal) Last Documented On 9 2:42PM ; [facility] History of Present Illness Includes: History of Present Illness from this encounter HPI MOOKIE MARTÍNEZ is a 63 year old female. - Medication list reviewed - PRIMARY CARE PROVIDER : Dr Sharp Social History Description Last Updated In monogamous relationship 03/12/2019 Last Documented On 9 10:37AM ; [facility] Non-smoker 03/12/2019 Last Documented On 9 10:37AM ; [facility] Not using alcohol 03/12/2019 Last Documented On 9 10:37AM ; [facility] Not using drugs 03/12/2019 Last Documented On 9 10:37AM ; [facility] Social history unchanged 03/12/2019 Last Documented On 9 10:37AM ; [facility] Smoking status : Never smoker 03/12/2019 Last Documented On 9 10:37AM ; [facility] Sexually active with 1 partners in the l ast year 02/25/2018 Last Documented On 9 10:11AM ; [facility] Procedures and Surgical History Includes: Procedures from this encounter Procedures Code Diagnosis Performing Provider Service L ocation Service Date low fat diet Last Documented On 9 10:12AM ; [facility] fecal occult blood test was negative 29062 Last Documented On 9 10:11AM ; [facility] Surgical History Last Updated Bilateral salpingo-oophorectomy 02/25/20 17 Last Documented On 9 10:11AM ; [facility] Breast Biopsy 02/24/2017 Last Documented On 9 10:11AM ; [facility] History of section x2 7 Last Documented On 9 10:11AM ; [facility] History of oophorectomy 02/24/2017 Last Documented On 9 10:11AM ; [facility] History of salpingectomy 02/24/2017 Last Documented On 9 10:11AM ; [facility] Replacement of a hip 02/24/2017 Last Documented On 9 10:11AM ; [facility] Surgical / procedural histor y ekaterina hip replacement ~left breast lumpectomy with chemo port ~Bilateral oopherectomy 02/24/2017 Last Documented On 9 10:11AM ; [facility] Medical History Includes: Medical History addressed during this encounter Description Last Updated No recent change in medical history 02/14 Last Documented On 9 10:37AM ; [facility] History of a DXA of the late ral lumbar spine was performed 03/04/2017 wnl-scheduled for next 03/12/2019 Last Documented On 9 10:37AM ; [facility] History of complete colonoscopy 2011 Last Documented On 9 10:37AM ; [facility] History of Pap smear done 02/24/201702/14 Last Documented On 9 10:37AM ; [facility] History of screening mammogram was perfo rmed 07/27/2018 03/12/2019 Last Documented On 9 10:37AM ; [facility] Result: normal 03/12/2019 Last Documented On 9 10:37AM ; [facility] Result: normal 03/12/2019 Last Documented On 9 10:37AM ; [facility] Sexually active 02/25/2018 Last Documented On 9 10:11AM ; [facility] LMP: 2005 02/25/2018 Last Documented On 9 10:11AM ; [facility] 2 02/24/2017 Last Documented On 9 10:11AM ; [facility] History of menopause 2005 02/24/2017 Last Documented On 9 10:11AM ; [facility] Hypertension 02/24/2017 Last Documented On 9 10:11AM ; [facility] Para 2 02/24/2017 Last Documented On 9 10:11AM ; [facility] Family History Includes: Family History addressed during this encounter Description Last Updated Family history unchanged 02/25/2018 Last Documented On 9 10:11AM ; [facility] First child named GOMEZ 198912/13/2009 Last Documented On 9 10:11AM ; [facility] Second child named JEFFREY 1991 0 Last Documented On 9 10:11AM ; [facility] Spouse name: LUIS FERNANDO 12/13/2009 Last Documented On 9 10:11AM ; [facility] Review of Systems Includes: Review of Systems from this encounter Gastrointestinal: No pelvic pain. Genitourinary: No postmenopausal bleeding. No vaginal discharge. 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 Neoplasm Rectum,Normal Female Exam Clinical Notes Includes: Clinical Notes from this encounter No Clinical Notes Recorded
--- OUTSIDE RECORDS SUMMARY | 2025-08-15 02:07 | XMS_ITS | Clinical Summary ---
Author Organization [facility] Address [address] [place] [address] Care Team Providers Care Casing Fluid Tender Name Role Phone Tanner Jordan MD Primary [...] (03/08/2022): Added automatically from request for surgery [id number] Nonrheumatic aortic valve stenosis 08/15/2021 Overview (08/15/2021): Added automatically from request for surgery [id number] Encounters Date Type Department Care Team Description 07/28/2025 3:00 PM WELL POINT PUMPING SUPERVISOR Office Visit [facility] Medicine Surgery [address] [place] [address] Rena Cortez NP Nonrheumatic aortic valve stenosis (Primary Dx) 07/28/2025 Results Follow-Up [facility] Medical [facility] Cardiology [address], [place] [address] Saw Cao MD Transthoracic Echo (TTE) Complete W Doppler/CF 07/26/2025 8:15 AM WELL POINT PUMPING SUPERVISOR Ancillary Procedure [facility] Medical [facility] Cardiology [address] [place] [address] S/P aortic valve replacement 06/07/2025 8:48 AM CDT - 06/07/2025 11:59 PM CDT Hospital Encounter [facility] [address] [place] [address] Right knee pain, unspecified chronicity Discharge Disposition: Discharge to home or self care from Last 3 Months Surgical History Surgery [...] on file Legal Sex Female 12:18 PM WELL POINT PUMPING SUPERVISOR Gender Identity Not on file Sexual Orientation Not on file Last Filed Vital Signs Vital Sign Reading Time Taken Comments Blood Pressure 121/82 07/28/2025 3:14 PM WELL POINT PUMPING SUPERVISOR Pulse 62 07/28/2025 3:14 PM WELL POINT PUMPING SUPERVISOR Temperature 36 C (96.8 F) 04/18/2022 12:27 PM CDT Respiratory Rate 16 07/28/2025 3:14 PM WELL POINT PUMPING SUPERVISOR Oxygen Saturation 100% 07/28/2025 3:14 PM WELL POINT PUMPING SUPERVISOR Inhaled Oxygen Concentration - - Weight 68 kg (150 lb) 07/28/2025 3:14 PM WELL POINT PUMPING SUPERVISOR Height 162.6 cm (5' 4) 07/28/2025 3:14 PM WELL POINT PUMPING SUPERVISOR Body Mass Index 25.75 07/28/2025 3:14 PM WELL POINT PUMPING SUPERVISOR Plan of Treatment Health Maintenance Due Date [...] (#1) 2025 Medical Devices Implanted Type Area Qi Specialist Device Identifier Shelf Expiration Date Model / Serial / Lot [employer] Inspiris Resilia Aortic Valve 21mm [id number] - [id number] - [id number] Implanted:Qty: 1 on 03/25/2022 by Jaylan Rahman MD at [facility] N/A: Heart [employer] 06/27/2025 [id number] / [id number] / Procedures Procedure Name Priority Date/Time Associated Diagnosis Comments TRANSTHORACIC ECHO (TTE) COMPLETE W DOPPLER/CF WO CONTRAST Routine 07/26/2025 9:22 AM WELL POINT PUMPING SUPERVISOR S/P aortic valve replacement MRI KNEE RIGHT WO CONTRAST Schedule Routine, Read Routine (OP Routine) 06/07/2025 9:39 AM CDT Right knee pain, unspecified chronicity from Last 3 Months Results * TRANSTHORACIC ECHO (TTE) COMPLETE W DOPPLER/CF WO CONTRAST (07/26/2025 9:22 AM WELL POINT PUMPING SUPERVISOR) Estimated EF 70-75 % CONS SCIMAGE EF Mod BP 71 % CONS SCIMAGE Anatomical Region Laterality Modality Ultrasound 07/26/2025 8:02 AM WELL POINT PUMPING SUPERVISOR Narrative 07/26/2025 1:15 PM WELL POINT PUMPING SUPERVISOR [facility] Cardiology [address] [address] [address] [address] [address] P:[phone] P:[phone] Echocardiographic Report Patient Name: ALEJA GRIMM L : 1955 Study Date: 07/26/2025 8:02:28 AM Sex: F Measurement Specialist: Agueda Rangel (Heron)(CT), [facility] Location: [facility] Provider: SAW CAO Height(Cm): 163 BSA: 1.78 Weight(Kg): 69.9 Heart Rate: 63 BP: 130 / 68 Quality: Good Order Provider: SAW CAO PROCEDURES: Echocardiographic Report: Transthoracic echocardiogram with complete 2D, M-Mode, and color Doppler examination. With Strain Analysis. INDICATIONS: Z95.2 Presence of prosthetic heart valve. MEASUREMENTS: 2D/MM Value Range Doppler Value Range EF Mod BP 71 % [ 54 - 74 ] FIDEL Vmax 1.46 cm2 [ 2.00 - 4.00 ] Estimated EF 70-75 % AV Mean PG 15 mmHg LV GLS -18.09 % AV Peak Tremaine 2.57 m/s [ 1.00 - 1.70 ] LVIDd 2D 3.69 cm [ 3.80 - 5.20 ] AV Peak PG 26 mmHg LVIDs 2D 2.29 cm [ 2.20 - 3.50 ] AV VTI 60.45 cm LVPWd 2D 1.06 cm [ 0.60 - 0.90 ] LVOT Diam 2.03 cm [ 1.70 - 2.10 ] IVSd 2D 1.10 cm [ 0.60 - 0.90 ] LVOT Peak Tremaine 1.16 m/s [ 0.70 - 1.10 ] AoR Diam 2D 3.28 cm [ 2.70 - 3.30 ] LVOT VTI 28.68 cm LA Volume 50.15 ml [ 22.00 - 52.00 ] PV Peak Tremaine 0.86 m/s [ 0.40 - 0.80 ] LA Volume Index 28 cc/m2 [ 16 - 28 ] TR Peak Tremaine 2.68 m/s [ 1.00 - 2.80 ] RA Volume 29.89 ml TR Peak PG 29 mmHg RV S` 10.49 mmHg Tapse 2.21 cm [ 1.71 - 5.00 ] 2D/MM Value Range Doppler Value Range - FINDINGS: Interpretation Site: Exam was interpreted at [facility]. Left Ventricle: Normal left ventricular systolic function. No focal wall motion abnormalities. Mild concentric left ventricular hypertrophy. Left ventricle cavity is upper limits of normal in size. Impaired diastolic relaxation Grade I. Ejection fraction is measured at 71 %. Ejection Fraction is visually estimated to be 70-75 %. Global Longitudinal Strain is -18 %. GLS is normal. Right Ventricle: Normal right ventricular size. Normal right ventricular systolic function. Left Atrium: There is mild enlargement of left atrium. Right Atrium: The right atrium is normal in size. Atrial Septum: Normal atrial septum. Mitral Valve: Severe mitral annular calcification. Mild to moderate mitral valve regurgitation. There is no hemodynamically significant mitral stenosis by Doppler. Aortic Valve: Mean gradient of 15.0 mmHg. Valve area of 1.5 cm2. Trace aortic valve regurgitation. Gradients normal for valve type and size. Normal appearing aortic valve bioprosthesis. Tricuspid Valve: Normal appearance of the tricuspid valve. Normal right ventricular systolic pressure. Estimated peak RVSP is 30-35 mmHg. Mild tricuspid regurgitation. Pulmonic Valve: Normal appearance of the pulmonic valve. No pulmonic stenosis. Mild pulmonic regurgitation. Pericardium: Normal pericardium with no significant pericardial effusion. Aorta: Ascending aorta is mildly dilated. Ascending Aorta 4.0 cm. IVC: Normal size and normal respiratory collapse consistent with normal right atrial pressure (<5 mmHg). CONCLUSIONS: Normal left ventricular systolic function. No focal wall motion abnormalities. Mild concentric left ventricular hypertrophy. Left ventricle cavity is upper limits of normal in size. Impaired diastolic relaxation Grade I. Ejection fraction is measured at 71 %. Ejection Fraction is visually estimated to be 70-75 %. Global Longitudinal Strain is -18 %. GLS is normal. There is mild enlargement of left atrium. Severe mitral annular calcification. Mild to moderate mitral valve regurgitation. Mean gradient of 15.0 mmHg. Valve area of 1.5 cm2. Trace aortic valve regurgitation. Gradients normal for valve type and size. Normal appearing aortic valve bioprosthesis. Mild tricuspid regurgitation. Mild pulmonic regurgitation. Ascending aorta is mildly dilated. Ascending Aorta 4.0 cm. Normal sinus rhythm. Electronically Signed By: Farooq Stewart MD 07/26/2025 1:15:30 PM WELL POINT PUMPING SUPERVISOR Procedure Note Farooq Stewart MD - 07/26/2025 [facility] Cardiology [address] [address] [address] [address] [facility] [facility] [address], [place] [address] P:[phone] P:[phone] Echocardiographic Report Patient Name: ALEJA GRIMM L : 1955 Study Date: 07/26/2025 8:02:28 AM Sex: F Measurement Specialist: Agueda Olmstead)(CT), [facility] Location: [facility] Provider: SAW CAO Height(Cm): 163 BSA: 1.78 Weight(Kg): 69.9 Heart Rate: 63 BP: 130 / 68 Quality: Good Order Provider: SAW CAO PROCEDURES: Echocardiographic Report: Transthoracic echocardiogram with complete 2D, M-Mode, and color Dopplerexamination. With Strain Analysis. INDICATIONS: Z95.2 Presence of prosthetic heart valve. MEASUREMENTS: 2D/MM Value Range Doppler ValueRange EF Mod BP 71 % [ 54 - 74 ] FIDEL Vmax 1.46cm2 [ 2.00 - 4.00 ] Estimated EF 70-75 % AV Mean PG 15mmHg LV GLS -18.09 % AV Peak Tremaine 2.57m/s [ 1.00 - 1.70 ] LVIDd 2D 3.69 cm [ 3.80 - 5.20 ] AV Peak PG 26mmHg LVIDs 2D 2.29 cm [ 2.20 - 3.50 ] AV VTI 60.45cm LVPWd 2D 1.06 cm [ 0.60 - 0.90 ] LVOT Diam 2.03cm [ 1.70 - 2.10 ] IVSd 2D 1.10 cm [ 0.60 - 0.90 ] LVOT Peak Tremaine 1.16m/s [ 0.70 - 1.10 ] AoR Diam 2D 3.28 cm [ 2.70 - 3.30 ] LVOT VTI 28.68cm LA Volume 50.15 ml [ 22.00 - 52.00 ] PV Peak Tremaine 0.86m/s [ 0.40 - 0.80 ] LA Volume Index 28 cc/m2 [ 16 - 28 ] TR Peak Tremaine 2.68m/s [ 1.00 - 2.80 ] RA Volume 29.89 ml TR Peak PG 29mmHg RV S` 10.49 mmHg Tapse 2.21 cm [ 1.71 - 5.00 ] 2D/MM Value Range Doppler ValueRange - FINDINGS: Interpretation Site: Exam was interpreted at [facility]. Left Ventricle: Normal left ventricular systolic function. No focal wall motionabnormalities. Mild concentric left ventricular hypertrophy. Left ventricle cavity is upperlimits of normal in size. Impaired diastolic relaxation Grade I. Ejection fraction ismeasured at 71 %. Ejection Fraction is visually estimated to be 70-75 %. Global LongitudinalStrain is -18 %. GLS is normal. Right Ventricle: Normal right ventricular size. Normal right ventricular systolicfunction. Left Atrium: There is mild enlargement of left atrium. Right Atrium: The right atrium is normal in size. Atrial Septum: Normal atrial septum. Mitral Valve: Severe mitral annular calcification. Mild to moderate mitral valveregurgitation. There is no hemodynamically significant mitral stenosis by Doppler. Aortic Valve: Mean gradient of 15.0 mmHg. Valve area of 1.5 cm2. Trace aortic valveregurgitation. Gradients normal for valve type and size. Normal appearing aortic valvebioprosthesis. Tricuspid Valve: Normal appearance of the tricuspid valve. Normal right ventricularsystolic pressure. Estimated peak RVSP is 30-35 mmHg. Mild tricuspid regurgitation. Pulmonic Valve: Normal appearance of the pulmonic valve. No pulmonic stenosis. Mildpulmonic regurgitation. Pericardium: Normal pericardium with no significant pericardial effusion. Aorta: Ascending aorta is mildly dilated. Ascending Aorta 4.0 cm. IVC: Normal size and normal respiratory collapse consistent with normal rightatrial pressure (<5 mmHg). CONCLUSIONS: Normal left ventricular systolic function. No focal wall motionabnormalities. Mild concentric left ventricular hypertrophy. Left ventricle cavity is upperlimits of normal in size. Impaired diastolic relaxation Grade I. Ejection fraction ismeasured at 71 %. Ejection Fraction is visually estimated to be 70-75 %. Global LongitudinalStrain is -18 %. GLS is normal. There is mild enlargement of left atrium. Severe mitral annular calcification. Mild to moderate mitral valveregurgitation. Mean gradient of 15.0 mmHg. Valve area of 1.5 cm2. Trace aortic valveregurgitation. Gradients normal for valve type and size. Normal appearing aortic valvebioprosthesis. Mild tricuspid regurgitation. Mild pulmonic regurgitation. Ascending aorta is mildly dilated. Ascending Aorta 4.0 cm. Normal sinus rhythm. Electronically Signed By: Farooq Stewart MD 07/26/2025 1:15:30 PM WELL POINT PUMPING SUPERVISOR us Saw Cao MD CV ECHO PROCEDURES Final Result * MRI Knee Right WO Contrast (06/07/2025 [...] Tobin Freeman M.D. MF: [id number] Report ID: [id number] Reading Location: [id number] Procedure Note Tobin Freeman MD - 06/07/2025 [...] Tobin Freeman M.D. MF: [id number] Report ID: [id number] Reading Location: [place] [address] Tree Olivo MD IM MRI PROCEDURES Final Re sult from Last 3 Months Insurance T MEDICARE T MEDICARE T MEDICARE T MEDICARE Advance Directives For more information, please contact: [phone] * Full Code (Latest Code Status on File) Date Activated Date Inactivated Comments 03/25/2022 1:42 PM 03/29/2022 9:25 PM Care Teams Casing Fluid Tender Relationship Specialty Start Date End Date Tanner Jordan MD PCP - General 12/14/17
--- OUTSIDE RECORDS SUMMARY | 2025-08-15 02:07 | XMS_ITS ---
Care Plan - [facility] Created on: August 15, 2025 TANYALAINEYMOOKIE L : 1955 Sex: Female Author Organization [facility] Address [address] [place] [address] Phone Care Team Providers Care Senior Linux Engineer Name Role Phone Unavailable Unavailable Unavailable
--- OUTSIDE RECORDS SUMMARY | 2025-08-15 02:07 | XMS_ITS | Clinical Summary ---
Author Organization [facility] Address [address] [place] [address] Phone Care Team Providers Care Body Maker Name Role Phone Unavailable Unavailable Unavailable Reason for Visit and Chief Complaint ANNUAL SHOW GIRL EXAM Problems Includes: Problems addressed during this encounter and other active Problems All Visits Onset Date Resolved Date Provider Condition S tatus Salpingo-oophorectomy Bilateral 02/08/2015 AMADO RUSHING NP-BC Active Last Documented On 5 10:36AM ; [facility] HX OF BREAST MALIGNANCY 12/13/2009 AMADO Mora NP-BC Active Last Documented On 02/08/2015 10:44AM ; [facility] Note: SENTINEL NODE NEGATIVE - left side Allergic Rhinitis 12/06/2009 ELIZABETH ARNOLD M.D. Active Last Documented On 0 3:42PM ; [facility] Arthritis 12/06/2009 ELIZABETH ARNOLD M.D. A ctive Last Documented On 0 3:41PM ; [facility] Plan of Treatment No Plan of Treatment [...] 7 11:06AM By LUIS FERNANDO YANG ; [facility] Vitamin D3 10083 UNIT Capsule, conventional 02/08/2015 Provider: Diagnosis: Last Documented On 10:42AM By LUIS FERNANDO YANG ; [facility] Medications Administered Includes: Administered [...] Allergies Includes: Active Allergies No Known Allergies Clinical Notes Includes: Clinical Notes from this encounter No Clinical Notes Recorded
--- OUTSIDE RECORDS SUMMARY | 2025-08-15 02:07 | XMS_ITS | Clinical Summary ---
Author Organization [facility] Address [address] [place] [address] Phone Care Team Providers Care Mining Plant Operator Name Role Phone Unavailable Unavailable Unavailable Reason [...] [facility] Vitamin D3 18804 UNIT Capsule, conventional 02/08/2015 Provider: Diagnosis: Last Documented On 10:42AM By LUIS FERNANDO YANG ; [facility] Medications Administered Includes: Administered [...] Location Date Check-In Time Check-Out Time Diagnosis KIAR RUSHING ANDRÉS-BC [facility] WINERY WORKER 03/04/2017 7:43AM 9:04AM Clinical Notes Includes: Clinical Notes from this encounter No Clinical Notes Recorded
--- OUTSIDE RECORDS SUMMARY | 2025-08-15 02:07 | XMS_ITS | Clinical Summary ---
Author Organization [facility] Address [address], [facility] [address] [place] [address] Phone Care Team Providers Care Alligator Shear Operator Name Role Phone Marleen Langston APRN, INSPECTOR MOTOR VEHICLES Primary Care Provider + Anitha Alvarez MD Unavailable [phone] Janie Mancilla MD Unavailable [phone] Alina Gurrola MD Unavailable [phone] Allergies No known active allergies Medications aspirin EC 81 MG Tablet Delayed Response Take 81 mg by mouth daily. 10/21/2022 Active atorvastatin (LIPITOR) 80 MG Tablet Take 80 mg by mouth nightly. 11/13/2022 Active ergocalciferol (VITAMIN D) 13586 UNIT Capsule TAKE 1 CAPSULE BY MOUTH [...] from 08/22/2022:Stage IIA(cT2, cN0(f), cM0, G2, ER+, UT-, HER2-) - Signed by Janie Mancilla MD on 12/30/2022 Pathologic stage from 10/15/2022:Stage IIA(pT2, pN0(sn), cM0, G2, ER+, UT-, HER2- , Oncotype DX score: 22) - Signed by Janie Mancilla MD on 12/12/2022 Overview (01/20/2023): Clinical and pathologic stage IIA (pT2, pNo(sn), cM0, G2, ER positive, UT/HER2 negative, Oncotype DX score: 22) invasive lobular [...] (12/31/2022): Pathologic stage IIA (pT2, pN0, cM0) ER/UT/HER2 positive left breast IDC status post breast [...] Comments Blood Pressure 151/77 09/17/2024 9:10 AM COMMUNICATIONS SYSTEMS ENGINEER Pulse 65 09/17/2024 9:10 AM COMMUNICATIONS SYSTEMS ENGINEER Temperature 36.4 C (97.6 F) 09/17/2024 9:10 AM COMMUNICATIONS SYSTEMS ENGINEER Respiratory Rate 16 09/17/2024 9:10 AM COMMUNICATIONS SYSTEMS ENGINEER Oxygen Saturation 100% 09/17/2024 9:10 AM COMMUNICATIONS SYSTEMS ENGINEER Inhaled Oxygen Concentration - - Weight 67.9 kg (149 lb 9.6 oz) 09/17/2024 9:10 A M COMMUNICATIONS SYSTEMS ENGINEER Height 162.6 cm (5' 4) 09/17/2024 9:10 AM COMMUNICATIONS SYSTEMS ENGINEER Body Mass Index 25.68 09/17/2024 9:10 AM COMMUNICATIONS SYSTEMS ENGINEER Plan of Treatment Upcoming Encounters Date Type Department Care Team (Late st Contact Info) Description 09/16/2025 8:00 AM COMMUNICATIONS SYSTEMS ENGINEER [facility] [address] [place] [id number] Janie Mancilla MD [address] [place] [address] Rui Nash MD [address] [place] [address] Discharge Disposition: Discharged to home or Selfcare [...] Virus (RSV) Immunization (Adult) (1 - Risk 50-74 years 1-dose series) 2004 SARS-COV-2 Immunization (2 - Charly risk series) [...] topic Insurance MEDICARE C [employer] Care Teams Alligator Shear Operator Relationship Specialty Start Date End Date Marleen Langston, MAINTENANCE AND CUSTODIAN SUPERVISOR, INSPECTOR MOTOR VEHICLES PCP - General Obstetrics & Gynecology 03/12/17 Anitha Alvarez MD Consulting Physician General Surgery 12/12/22 Janie Mancilla MD [address] [place] [address] Consulting Physician Radiation Oncology 12/12/22 Alina Gurrola MD [address] [place] [address] Consulting Physician Medical Oncology 08/27/23
--- OUTSIDE RECORDS SUMMARY | 2025-08-15 02:07 | XMS_ITS ---
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, estrogen receptor positive 12/12/2022 Cancer Staging:Clinical stage from 08/22/2022:Stage IIA(cT2, cN0(f), cM0, G2, ER+, CT-, HER2-) - Signed by Janie Mancilla MD on 12/30/2022 Pathologic stage from 10/15/2022:Stage IIA(pT2, pN0(sn), cM0, G2, ER+, CT-, HER2- , Oncotype DX score: 22) - Signed by Janie Mancilla MD on 12/12/2022 Overview (01/20/2023): Clinical and pathologic stage IIA (pT2, pNo(sn), cM0, G2, ER positive, CT/HER2 negative, Oncotype DX score: 22) invasive lobular [...] (12/31/2022): Pathologic stage IIA (pT2, pN0, cM0) ER/CT/HER2 positive left breast IDC status post breast [...] information found. Current Radiation Episodes * 3D CUSTOMER TRAINER: Right BreastOverview* First Treatment Date Latest Treatment Date Treatment Site Technique Goal Episode Provider 12/24/2022 01/14/2023 Right Breast 3D CUSTOMER TRAINER Curative * Linked Problems Carcinoma of overlapping [...]
--- OUTSIDE RECORDS SUMMARY | 2025-08-15 02:08 | XMS_ITS ---
Author Organization [facility] Address [address] [place] [address] Phone Care Team Providers Care Assistant Inventory Manager Name Role Phone Unavailable Unavailable Unavailable Problems Includes: Active, inactive, and resolved Problems All Visits Onset Date Resolved Date Provider Condition S tatus Salpingo-oophorectomy Bilateral 02/08/2015 AMADO Russell KRISTAN WHNP-BC Active Last Documented On 5 10:36AM ; [facility] HX OF BREAST MALIGNANCY 12/13/2009 DAYANARA E Yvonne RUSHING WHNP-BC Active Last Documented On 02/08/2015 10:44AM ; [facility] Note: SENTINEL NODE NEGATIVE - left side OVARIAN CYST NEC/NOS 12/13/2009 Unknown SABINE Zelaya Resolved Last Documented On 3 3:13PM ; [facility] Allergic Rhinitis 12/06/2009 ELIZABETH ARNOLD M.D. Active Last Documented On 0 3:42PM ; [facility] Arthritis 12/06/2009 ELIZABETH ARNOLD M.D. A ctive Last Documented On 0 3:41PM ; [facility] Plan of Treatment Findings Encounter Date Ordered Clinical summary pro vided to patient ANNUAL DAIRY HELPER EXAM with AMADO Russell KRISTAN WHNP-BC 03/12/2019 Last Documented On 9 10:37AM ; [facility] Ordered follow-up visit 1 ye ar or as needed ANNUAL DAIRY HELPER EXAM with AMADO Russell KRISTAN WHNP-BC 03/12/2019 Last Documented On 9 10:37AM ; [facility] Ordered Transition in care, clinical summary provided ANNUAL DAIRY HELPER EXAM with AMADO RUSHING [facility] 03/12/2019 Last Documented On 9 10:37AM ; [facility] Requested Referred to: Ophelia multani - GI - Screening colonoscopy due! ANNUAL DAIRY HELPER EXAM with AMADO RUSHING NP-BC 03/12/2019 Last Documented On 9 10:37AM ; [facility] Ordered Clinical summary pro vided to patient ANNUAL DAIRY HELPER EXAM with AMADO RUSHING [facility] 02/25/2018 Last Documented On 8 8:09AM ; [facility] Ordered follow-up visit 1 ye ar or as needed ANNUAL DAIRY HELPER EXAM with AMADO RUSHING [facility] 02/25/2018 Last Documented On 8 8:09AM ; [facility] Ordered Transition in care, clinical summary provided ANNUAL DAIRY HELPER EXAM with AMADO RUSHING [facility] 02/25/2018 Last Documented On 8 8:09AM ; [facility] Requested Referred to: Kluck a - GI - screening colonoscopy due! ANNUAL DAIRY HELPER EXAM with AMADO RUSHING [facility] 02/25/2018 Last Documented On 8 8:09AM ; [facility] Ordered Clinical summary pro vided to patient ANNUAL DAIRY HELPER EXAM with AMADO RUSHING [facility] 02/24/2017 Last Documented On 7 11:18AM ; [facility] Ordered follow-up visit 1 ye ar or as needed ANNUAL DAIRY HELPER EXAM with AMADO RUSHING [facility] 02/24/2017 Last Documented On 7 11:18AM ; [facility] Ordered Transition in care, clinical summary provided ANNUAL DAIRY HELPER EXAM with AMADO RUSHING [facility] 02/24/2017 Last Documented On 7 11:18AM ; [facility] Requested Referred to: GI - [facility] - screening colonoscopy due ANNUAL DAIRY HELPER EXAM with AMADO RUSHING [facility] 02/24/2017 Last Documented On 7 11:18AM ; [facility] Ordered Clinical summary pro vided to patient ANNUAL DAIRY HELPER EXAM with AMADO RUSHING NP-BC 02/21/2016 Last Documented On 6 2:51PM ; [facility] Ordered follow-up visit 1 ye ar or as needed ANNUAL DAIRY HELPER EXAM with AMADO RUSHING [facility] 02/21/2016 Last Documented On 6 2:51PM ; [facility] Ordered Clinical summary pro vided to patient FOOD SERVICES DIRECTOR EXAM with AMADO RUSHING [facility] 02/08/2015 Last Documented On 5 10:53AM ; [facility] Ordered follow-up visit 1 ye ar or as needed FOOD SERVICES DIRECTOR EXAM with AMADO RUSHING [facility] 02/08/2015 Last Documented On 5 10:53AM ; [facility] Referrals To Diagnosis Oncology/Hematology OTHER KOBE PLASM NOS Last Documented On 0 10:34AM ; [facility] Breast Specialist BENIGN NEOPLAS M BREAST Note: REFERRED TO DR. ARNALDO Zelaya Last Documented On 0 9:18AM ; [facility] Breast Specialist MALIGN NEOPL B REAST NEC Last Documented On 0 9:48AM ; [facility] Instructions to patient Instructions for patient : B reast Self Exam discussed Last Documented On 9 10:11AM ; [facility] Colonoscopy Handout given to patient Last Documented On 9 10:12AM ; [facility] Instructions for patient : B reast Self Exam discussed Last Documented On 8 7:56AM ; [facility] Lose weight Last Documented On 8 7:56AM ; [facility] Colonoscopy Handout given to patient Last Documented On 8 7:56AM ; [facility] Instructions for patient : B reast Self Exam discussed Last Documented On 7 10:53AM ; [facility] Lose weight Last Documented On 7 10:54AM ; [facility] Colonoscopy Handout given to patient Last Documented On 7 10:54AM ; [facility] Instructions for patient : B reast Self Exam discussed Last Documented On 6 2:34PM ; [facility] Lose weight Last Documented On 6 2:36PM ; [facility] Colonoscopy Handout given to patient Last Documented On 6 2:36PM ; [facility] Instructions for patient : B reast Self Exam discussed Last Documented On 5 10:34AM ; [facility] Colonoscopy Handout given to patient Last Documented On 5 10:35AM ; [facility] Instructions for patient : B reast Self Exam discussed Last Documented On 4 9:07AM ; [facility] Instructions for patient : B reast Self Exam discussed Last Documented On 3 3:41PM ; [facility] Instructions for patient : B reast Self Exam discussed. Reviewed monthly self breast examination and technique Last Documented On 2 9:44AM ; [facility] Recommend diet and exercise at least 30 min three times per week Last Documented On 2 9:44AM ; [facility] Discussed Gardasil vaccinati on and recommend vaccination for HPV prevention. Handout given. Patient undertsands sexual transmission of high-risk HPV and association with abnormal pap smear and cervical cancer. recommend to decrease high risk behaviors such as: number of sexual partners, smoking, and contraceptive use Last Documented On 2 9:44AM ; [facility] Recommend preventative vacci nation including but not limited to influenza/flu vaccine, DTP, Rubella, Hepatitis B vaccination series Last Documented On 2 9:44AM ; [facility] Recommend annual pap smear e xamination or every three year if high risk hpv negative and 3 consecutive normal pap examination during preceding three years Last Documented On 2 9:44AM ; [facility] Recommend TSH, fasting gluco se, fasting lipid panel, CBC, BMP Last Documented On 2 9:44AM ; [facility] Recommend Calcium supplement ation and weight bearing exercise Last Documented On 2 9:44AM ; [facility] Recommended Bone Density Last Documented On 2 9:44AM ; [facility] Recommended Colonoscopy Pt r eferred to Gastroenetrologist. Pt understands that recommendation for colonoscopy is every 10 years after the age of 50 or age of 40 if first degree relative with history of colon cancer. Patient understands that failure to follow recommendation can lead to delayed diagnosis of colon cancer and patient accepts all responsibility regarding scheduling and follow up with service center technician Last Documented On 2 9:44AM ; [facility] Instructions for patient : B reast Self Exam discussed. Reviewed monthly self breast examination and technique Last Documented On 1 4:17PM ; [facility] Recommend diet and exercise at least 30 min three times per week Last Documented On 1 4:17PM ; [facility] Discussed Gardasil vaccinati on and recommend vaccination for HPV prevention. Handout given. Patient undertsands sexual transmission of high-risk HPV and association with abnormal pap smear and cervical cancer. recommend to decrease high risk behaviors such as: number of sexual partners, smoking, and contraceptive use Last Documented On 4:17PM ; [facility] Recommend preventative vacci nation including but not limited to influenza/flu vaccine, DTP, Rubella, Hepatitis B vaccination series Last Documented On 4:17PM ; [facility] Recommend annual pap smear e xamination or every three year if high risk hpv negative and 3 consecutive normal pap examination during preceding three years Last Documented On 4:17PM ; [facility] Recommend TSH, fasting gluco se, fasting lipid panel, CBC, BMP Last Documented On 4:17PM ; [facility] Recommend Calcium supplement ation and weight bearing exercise Last Documented On 4:17PM ; [facility] Recommended Bone Density Last Documented On 4:17PM ; [facility] Recommended Colonoscopy Pt r eferred to Gastroenetrologist. Pt understands that recommendation for colonoscopy is every 10 years after the age of 50 or age of 40 if first degree relative with history of colon cancer. Patient understands that failure to follow recommendation can lead to delayed diagnosis of colon cancer and patient accepts all responsibility regarding scheduling and follow up with service center technician Last Documented On 1 4:17PM ; [facility] Instructions for patient : B reast Self Exam discussed. Reviewed monthly self breast examination and technique Last Documented On 0 3:16PM ; [facility] Recommend diet and exercise at least 30 min three times per week Last Documented On 0 3:16PM ; [facility] Discussed Gardasil vaccinati on and recommend vaccination for HPV prevention. Handout given. Patient undertsands sexual transmission of high-risk HPV and association with abnormal pap smear and cervical cancer. recommend to decrease high risk behaviors such as: number of sexual partners, smoking, and contraceptive use Last Documented On 0 3:16PM ; [facility] Recommend preventative vacci nation including but not limited to influenza/flu vaccine, DTP, Rubella, Hepatitis B vaccination series Last Documented On 0 3:16PM ; [facility] Recommend annual pap smear e xamination or every three year if high risk hpv negative and 3 consecutive normal pap examination during preceding three years Last Documented On 0 3:16PM ; [facility] Recommend TSH, fasting gluco se, fasting lipid panel, CBC, BMP Last Documented On 0 3:16PM ; [facility] Recommend Calcium supplement ation and weight bearing exercise Last Documented On 0 3:16PM ; [facility] Recommended Bone Density Last Documented On 0 3:16PM ; [facility] Recommended Colonoscopy Pt r eferred to Gastroenetrologist. Pt understands that recommendation for colonoscopy is every 10 years after the age of 50 or age of 40 if first degree relative with history of colon cancer. Patient understands that failure to follow recommendation can lead to delayed diagnosis of colon cancer and patient accepts all responsibility regarding scheduling and follow up with service center technician Last Documented On 0 3:16PM ; [facility] Education and Decision Aids were provided during visit for: Patient Education: Daily lauren cium and vitamin D Last Documented On 9 10:11AM ; [facility] Patient Education: weight be aring exercise Last Documented On 9 10:11AM ; [facility] Patient Education: Daily lauren cium and vitamin D Last Documented On 8 7:56AM ; [facility] Patient Education: weight be aring exercise Last Documented On 8 7:56AM ; [facility] Patient Education: Daily lauren cium and vitamin D Last Documented On 7 10:53AM ; [facility] Patient Education: weight be aring exercise Last Documented On 7 10:53AM ; [facility] Patient Education: Daily lauren cium and vitamin D Last Documented On 6 2:34PM ; [facility] Patient Education: weight be aring exercise Last Documented On 6 2:34PM ; [facility] Patient Education: Daily lauren cium and vitamin D Last Documented On 5 10:34AM ; [facility] Patient Education: weight be aring exercise Last Documented On 5 10:34AM ; [facility] STD screening offered and de clined Last Documented On 4 9:07AM ; [facility] Bone Mineral Density Screeni ng guidelines reviewed Last Documented On 4 9:07AM ; [facility] Patient Education: Daily lauren cium and vitamin D Last Documented On 4 9:07AM ; [facility] Patient Education: weight be aring exercise Last Documented On 4 9:07AM ; [facility] Colonoscopy screening guidel viri discussed Last Documented On 4 9:07AM ; [facility] STD screening offered and de clined Last Documented On 3 3:41PM ; [facility] Bone Mineral Density Screeni ng guidelines reviewed Last Documented On 3 3:41PM ; [facility] Patient Education: Daily lauren cium and vitamin D Last Documented On 3 3:41PM ; [facility] Patient Education: weight be aring exercise Last Documented On 3 3:41PM ; [facility] Colonoscopy screening guidel viri discussed Last Documented On 3 3:41PM ; [facility] Assessments Includes: Assessments for all patient encounters Findings Encounter Date NORMAL FEMALE EXAM ANNUAL DAIRY HELPER EXAM with AMADO RUSHING [facility]- 03/12/2019 Last Documented On 9 10:37AM ; [facility] Screening Malig. Neoplasm Rectum ANNUAL DAIRY HELPER EXAM with AMADO A RUSHING [facility] 03/12/2019 Last Documented On 9 10:37AM ; [facility] NORMAL FEMALE EXAM ANNUAL DAIRY HELPER EXAM with AMADO A RUSHING [facility]- 02/25/2018 Last Documented On 8 8:09AM ; [facility] Screening Malig. Neoplasm Rectum ANNUAL DAIRY HELPER EXAM with AMADO A RUSHING [facility] 02/25/2018 Last Documented On 8 8:09AM ; [facility] NORMAL FEMALE EXAM ANNUAL DAIRY HELPER EXAM with AMADO RUSHING [facility] 02/24/2017 Last Documented On 7 11:18AM ; [facility] Screening Malig. Neoplasm Rectum ANNUAL DAIRY HELPER EXAM with AMADO RUSHING [facility] 02/24/2017 Last Documented On 7 11:18AM ; [facility] NORMAL FEMALE EXAM ANNUAL DAIRY HELPER EXAM with AMADO RUSHING [facility] 02/21/2016 Last Documented On 6 2:51PM ; [facility] Screening Malig. Neoplasm Rectum ANNUAL DAIRY HELPER EXAM with AMADO RUSHING [facility] 02/21/2016 Last Documented On 6 2:51PM ; [facility] NORMAL FEMALE EXAM FOOD SERVICES DIRECTOR EXAM with AMADO [facility]USHING [facility]- 02/08/2015 Last Documented On 5 10:53AM ; [facility] Screening Malig. Neoplasm Rectum FOOD SERVICES DIRECTOR EXAM with Kelsy Russell KRISTAN [facility]- 02/08/2015 Last Documented On 5 10:53AM ; [facility] Routine pelvic exam WELL WOMAN EXAM with SABINE SANTANA MD 02/04/2014 Last Documented On 4 9:18AM ; [facility] Screening Malig. Neoplasm Rectum WELL WOMAN EXAM with SABINE SANTANA MD 02/04/2014 Last Documented On 4 9:18AM ; [facility] Routine pelvic exam NEW FOOD SERVICES DIRECTOR EXAM with SABINE WHEATLEY MD 01/28/2013 Last Documented On 3 3:48PM ; [facility] Screening Malig. Neoplasm Rectum NEW FOOD SERVICES DIRECTOR EXAM wi SABINE SANTANA MD 01/28/2013 Last Documented On 3 3:48PM ; [facility] Asymptomatic postmenopausal status FOOD SERVICES DIRECTOR EXAM with ELIZABETH ARNOLD M.D. 01/21/2012 Last Documented On 2 9:57AM ; [facility] Screening Malig. Neoplasm Rectum FOOD SERVICES DIRECTOR EXAM with Abby ARNOLD M.D. 01/21/2012 Last Documented On 2 9:57AM ; [facility] Asymptomatic postmenopausal status ANNUA L DAIRY HELPER EXAM with ELIZABETH ARNOLD M.D. 01/16/2011 Last Documented On 1 8:43AM ; [facility] MAMMOGRAM SCREENING ANNUAL DAIRY HELPER EXAM with ELIZABETH ARNOLD M.D. 01/16/2011 Last Documented On 1 8:43AM ; [facility] NORMAL FEMALE EXAM ANNUAL DAIRY HELPER EXAM with ELIZABETH ARNOLD M.D. 01/16/2011 Last Documented On 1 8:43AM ; [facility] Screening Malig. Neoplasm Rectum ANNUAL DAIRY HELPER EXAM with ELIZABETH ARNOLD M.D. 01/16/2011 Last Documented On 1 8:43AM ; [facility] POST OP VISIT POST OP VISIT with ELIZABETH BOWERS M.D. 06/19/2010 Last Documented On 0 2:31PM ; [facility] POST OP VISIT POST OP VISIT with ELIZABETH BOWERS M.D. 05/22/2010 Last Documented On 0 2:52PM ; [facility] Ovarian neoplasm PREOP EXAM with ELIZABETH CRUZ M.D. 05/08/2010 Last Documented On 0 2:45PM ; [facility] Asymptomatic postmenopausal status FOOD SERVICES DIRECTOR EXAM with ELIZABETH ARNOLD M.D. 01/04/2010 Last Documented On 0 3:21PM ; [facility] MAMMOGRAM SCREENING FOOD SERVICES DIRECTOR EXAM with ELIZABETH ALTAMIRANO M.D. 01/04/2010 Last Documented On 0 3:21PM ; [facility] NORMAL FEMALE EXAM FOOD SERVICES DIRECTOR EXAM with ELIZABETH CRUZ M.D. 01/04/2010 Last Documented On 0 3:21PM ; [facility] SCREENING FOR CONDITION NEC FOOD SERVICES DIRECTOR EXAM with PARISH ARNOLD M.D. 01/04/2010 Last Documented On 0 3:21PM ; [facility] Screening Malig. Neoplasm Rectum FOOD SERVICES DIRECTOR EXAM with Abby ARNOLD M.D. 01/04/2010 Last Documented On 0 3:21PM ; [facility] Malignant breast neoplasm [place] M staging of distant metastasis (M) RECHECK with ELIZABETH ARNOLD M.D. 12/13/2009 Last Documented On 0 9:16AM ; [facility] Ovarian neoplasm RECHECK with ELIZABETH ARNOLD M.D. 12/13/2009 Last Documented On 0 9:16AM ; [facility] Instructions Includes: Instructions for all patient encounters Instructions to patient Instructions for patient : B reast Self Exam discussed Last Documented On 9 10:11AM ; [facility] Colonoscopy Handout given to patient Last Documented On 9 10:12AM ; [facility] Instructions for patient : B reast Self Exam discussed Last Documented On 8 7:56AM ; [facility] Lose weight Last Documented On 8 7:56AM ; [facility] Colonoscopy Handout given to patient Last Documented On 8 7:56AM ; [facility] Instructions for patient : B reast Self Exam discussed Last Documented On 7 10:53AM ; [facility] Lose weight Last Documented On 7 10:54AM ; [facility] Colonoscopy Handout given to patient Last Documented On 7 10:54AM ; [facility] Instructions for patient : B reast Self Exam discussed Last Documented On 6 2:34PM ; [facility] Lose weight Last Documented On 6 2:36PM ; [facility] Colonoscopy Handout given to patient Last Documented On 6 2:36PM ; [facility] Instructions for patient : B reast Self Exam discussed Last Documented On 5 10:34AM ; [facility] Colonoscopy Handout given to patient Last Documented On 5 10:35AM ; [facility] Instructions for patient : B reast Self Exam discussed Last Documented On 4 9:07AM ; [facility] Instructions for patient : B reast Self Exam discussed Last Documented On 3 3:41PM ; [facility] Instructions for patient : B reast Self Exam discussed. Reviewed monthly self breast examination and technique Last Documented On 2 9:44AM ; [facility] Recommend diet and exercise at least 30 min three times per week Last Documented On 2 9:44AM ; [facility] Discussed Gardasil vaccinati on and recommend vaccination for HPV prevention. Handout given. Patient undertsands sexual transmission of high-risk HPV and association with abnormal pap smear and cervical cancer. recommend to decrease high risk behaviors such as: number of sexual partners, smoking, and contraceptive use Last Documented On 2 9:44AM ; [facility] Recommend preventative vacci nation including but not limited to influenza/flu vaccine, DTP, Rubella, Hepatitis B vaccination series Last Documented On 2 9:44AM ; [facility] Recommend annual pap smear e xamination or every three year if high risk hpv negative and 3 consecutive normal pap examination during preceding three years Last Documented On 2 9:44AM ; [facility] Recommend TSH, fasting gluco se, fasting lipid panel, CBC, BMP Last Documented On 2 9:44AM ; [facility] Recommend Calcium supplement ation and weight bearing exercise Last Documented On 2 9:44AM ; [facility] Recommended Bone Density Last Documented On 2 9:44AM ; [facility] Recommended Colonoscopy Pt r eferred to Gastroenetrologist. Pt understands that recommendation for colonoscopy is every 10 years after the age of 50 or age of 40 if first degree relative with history of colon cancer. Patient understands that failure to follow recommendation can lead to delayed diagnosis of colon cancer and patient accepts all responsibility regarding scheduling and follow up with service center technician Last Documented On 2 9:44AM ; [facility] Instructions for patient : B reast Self Exam discussed. Reviewed monthly self breast examination and technique Last Documented On 1 4:17PM ; [facility] Recommend diet and exercise at least 30 min three times per week Last Documented On 4:17PM ; [facility] Discussed Gardasil vaccinati on and recommend vaccination for HPV prevention. Handout given. Patient undertsands sexual transmission of high-risk HPV and association with abnormal pap smear and cervical cancer. recommend to decrease high risk behaviors such as: number of sexual partners, smoking, and contraceptive use Last Documented On 4:17PM ; [facility] Recommend preventative vacci nation including but not limited to influenza/flu vaccine, DTP, Rubella, Hepatitis B vaccination series Last Documented On 1 4:17PM ; [facility] Recommend annual pap smear e xamination or every three year if high risk hpv negative and 3 consecutive normal pap examination during preceding three years Last Documented On 1 4:17PM ; [facility] Recommend TSH, fasting gluco se, fasting lipid panel, CBC, BMP Last Documented On 1 4:17PM ; [facility] Recommend Calcium supplement ation and weight bearing exercise Last Documented On 1 4:17PM ; [facility] Recommended Bone Density Last Documented On 1 4:17PM ; [facility] Recommended Colonoscopy Pt r eferred to Gastroenetrologist. Pt understands that recommendation for colonoscopy is every 10 years after the age of 50 or age of 40 if first degree relative with history of colon cancer. Patient understands that failure to follow recommendation can lead to delayed diagnosis of colon cancer and patient accepts all responsibility regarding scheduling and follow up with service center technician Last Documented On 1 4:17PM ; [facility] Instructions for patient : B reast Self Exam discussed. Reviewed monthly self breast examination and technique Last Documented On 0 3:16PM ; [facility] Recommend diet and exercise at least 30 min three times per week Last Documented On 0 3:16PM ; [facility] Discussed Gardasil vaccinati on and recommend vaccination for HPV prevention. Handout given. Patient undertsands sexual transmission of high-risk HPV and association with abnormal pap smear and cervical cancer. recommend to decrease high risk behaviors such as: number of sexual partners, smoking, and contraceptive use Last Documented On 0 3:16PM ; [facility] Recommend preventative vacci nation including but not limited to influenza/flu vaccine, DTP, Rubella, Hepatitis B vaccination series Last Documented On 0 3:16PM ; [facility] Recommend annual pap smear e xamination or every three year if high risk hpv negative and 3 consecutive normal pap examination during preceding three years Last Documented On 0 3:16PM ; [facility] Recommend TSH, fasting gluco se, fasting lipid panel, CBC, BMP Last Documented On 0 3:16PM ; [facility] Recommend Calcium supplement ation and weight bearing exercise Last Documented On 0 3:16PM ; [facility] Recommended Bone Density Last Documented On 0 3:16PM ; [facility] Recommended Colonoscopy Pt r eferred to Gastroenetrologist. Pt understands that recommendation for colonoscopy is every 10 years after the age of 50 or age of 40 if first degree relative with history of colon cancer. Patient understands that failure to follow recommendation can lead to delayed diagnosis of colon cancer and patient accepts all responsibility regarding scheduling and follow up with service center technician Last Documented On 0 3:16PM ; [facility] Education and Decision Aids were provided during visit for: Patient Education: Daily lauren cium and vitamin D Last Documented On 9 10:11AM ; [facility] Patient Education: weight be aring exercise Last Documented On 9 10:11AM ; [facility] Patient Education: Daily lauren cium and vitamin D Last Documented On 8 7:56AM ; [facility] Patient Education: weight be aring exercise Last Documented On 8 7:56AM ; [facility] Patient Education: Daily lauren cium and vitamin D Last Documented On 7 10:53AM ; [facility] Patient Education: weight be aring exercise Last Documented On 7 10:53AM ; [facility] Patient Education: Daily lauren cium and vitamin D Last Documented On 6 2:34PM ; [facility] Patient Education: weight be aring exercise Last Documented On 6 2:34PM ; [facility] Patient Education: Daily lauren cium and vitamin D Last Documented On 5 10:34AM ; [facility] Patient Education: weight be aring exercise Last Documented On 5 10:34AM ; [facility] STD screening offered and de clined Last Documented On 4 9:07AM ; [facility] Bone Mineral Density Screeni ng guidelines reviewed Last Documented On 4 9:07AM ; [facility] Patient Education: Daily lauren cium and vitamin D Last Documented On 4 9:07AM ; [facility] Patient Education: weight be aring exercise Last Documented On 4 9:07AM ; [facility] Colonoscopy screening guidel viri discussed Last Documented On 4 9:07AM ; [facility] STD screening offered and de clined Last Documented On 3 3:41PM ; [facility] Bone Mineral Density Screeni ng guidelines reviewed Last Documented On 3 3:41PM ; [facility] Patient Education: Daily lauren cium and vitamin D Last Documented On 3 3:41PM ; [facility] Patient Education: weight be aring exercise Last Documented On 3 3:41PM ; [facility] Colonoscopy screening guidel viri discussed Last Documented On 3 3:41PM ; [facility] Medical Equipment - Implanted Devices Includes: Current and historical Devices No Medical Equipment Recorded Medications Includes: Current and historical Medications Current Medications (continue as prescribed) Claritin-D 12 Hour 5-120MG O ral Tablet Extended Release 12 Hour 02/24/2017 Provider: Diagnosis: Last Documented On 7 11:06AM By LUIS FERNANDO YANG ; [facility] Vitamin D3 21512 UNIT Capsule, conventional 02/08/2015 Provider: Diagnosis: Last Documented On 5 10:42AM By LUIS FERNANDO YANG ; [facility] Past Medications on file Femara 2.5 MG OR TABS 01/16/2011 - 02/21/2016 Provider : Diagnosis: Last Documented On 6 2:51PM By AMADO RUSHIGN [facility] ; [facility] CeleBREX 50 MG OR CAPS 06/18/2010 - 01/21/2012 Provide r: Diagnosis: Last Documented On 2 9:48AM By DR. ELIZABETH ARNOLD ; [facility] Zully 60 MG OR TABS 06/18/2010 - 01/21/2012 Provider : Diagnosis: Last Documented On 2 9:48AM By DR. ELIZABETH ARNOLD ; [facility] CeleBREX 100 MG OR CAPS 12/11/2009 - 05/08/2010 Provid er: Diagnosis: Last Documented On 0 2:42PM By DR. ELIZABETH ARNOLD ; [facility] Zully 60 MG OR TABS 12/11/2009 - 05/08/2010 Provider : Diagnosis: Last Documented On 0 2:42PM By DR. ELIZABETH ARNOLD ; [facility] Medications Administered Includes: Administered Medications in patient's chart No Administered Medications Recorded Results Includes: Results from 08/15/2024 through 08/15/2025 No Results Recorded For Specified Dates History of Present Illness History of Present Illness not supported for this document type No History of Present Illness Recorded Social History Description Last Updated In monogamous relationship 03/12/2019 Last Documented On 9 10:37AM ; [facility] Non-smoker 03/12/2019 Last Documented On 9 10:37AM ; [facility] Not using alcohol 03/12/2019 Last Documented On 9 10:37AM ; [facility] Not using drugs 03/12/2019 Last Documented On 9 10:37AM ; [facility] Social history unchanged 03/12/2019 Last Documented On 9 10:37AM ; [facility] Smoking status : Never smoker 03/12/2019 Last Documented On 9 10:37AM ; [facility] Sexually active with 1 partners in the l ast year 02/25/2018 Last Documented On 8 8:09AM ; [facility] Procedures and Surgical History Surgical History Last Updated Bilateral salpingo-oophorectomy 02/25/20 17 Last Documented On 7 11:18AM ; [facility] Breast Biopsy 02/24/2017 Last Documented On 7 11:18AM ; [facility] History of section x2 7 Last Documented On 7 11:18AM ; [facility] History of oophorectomy 02/24/2017 Last Documented On 7 11:18AM ; [facility] History of salpingectomy 02/24/2017 Last Documented On 7 11:18AM ; [facility] Replacement of a hip 02/24/2017 Last Documented On 7 11:18AM ; [facility] Surgical / procedural histor y ekaterina hip replacement ~left breast lumpectomy with chemo port ~Bilateral oopherectomy 02/24/2017 Last Documented On 7 11:18AM ; [facility] Medical History Includes: Medical History in patient's chart Description Last Updated No recent change in medical history 02/14 Last Documented On 9 10:37AM ; [facility] History of a DXA of the late lumbar spine was performed 03/04/2017 wnl-scheduled for next 03/12/2019 Last Documented On 9 10:37AM ; [facility] History of complete colonoscopy 2011 Last Documented On 9 10:37AM ; [facility] History of Pap smear done 02/24/201702/14 Last Documented On 9 10:37AM ; [facility] History of screening mammogram was perfo rmed 07/27/2018 03/12/2019 Last Documented On 9 10:37AM ; [facility] Result: normal 03/12/2019 Last Documented On 9 10:37AM ; [facility] Result: normal 03/12/2019 Last Documented On 9 10:37AM ; [facility] Sexually active 02/25/2018 Last Documented On 8 8:09AM ; [facility] LMP: 200402/25/2018 Last Documented On 8 8:09AM ; [facility] 2 02/24/2017 Last Documented On 7 11:18AM ; [facility] History of menopause 200402/24/2017 Last Documented On 7 11:18AM ; [facility] Hypertension 02/24/2017 Last Documented On 7 11:18AM ; [facility] Para 2 02/24/2017 Last Documented On 7 11:18AM ; [facility] Family History Includes: Family History in patient's chart Description Last Updated Family history unchanged 02/25/2018 Last Documented On 8 8:09AM ; [facility] First child named GOMEZ 198812/13/2009 Last Documented On 0 9:16AM ; [facility] Second child named JEFFREY Banerjee 0 Last Documented On 0 9:16AM ; [facility] Spouse name: LUIS FERNANDO 12/13/2009 Last Documented On 0 9:16AM ; [facility] Review of Systems Review of Systems not supported for this document type No Review of Systems Recorded Mental Status No Mental Status Recorded Functional Status No Functional Status Recorded Physical Exam Physical Exam not supported for this document type No Physical Exam Recorded Immunizations Includes: Immunizations in patient's chart Vaccine Dose # Date Site Reaction(s) Status Source Td 1 Complete (Reported) Jaci ent Last Documented On 1 4:19PM ; [facility] Allergies Includes: Active, inactive, and resolved Allergies No Known Allergies Clinical Notes Includes: Signed Clinical Notes starting from 10/04/2022 No Clinical Notes Recorded
--- OUTSIDE RECORDS SUMMARY | 2025-08-15 02:08 | XMS_ITS | Clinical Summary ---
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 Name Role Phone Unavailable Unavailable Unavailable Reason for Visit and Chief Complaint gynecologic annual exam - The Chief Complaint is: Annual Problems Includes: Problems addressed during this encounter and other active Problems All Visits Onset Date Resolved Date Provider Condition S tatus Salpingo-oophorectomy Bilateral 02/08/2015 AMADO RUSHING [facility]- Active Last Documented On 5 10:36AM ; [facility] HX OF BREAST MALIGNANCY 12/13/2009 AMADO Mora [facility]- Active Last Documented On 02/08/2015 10:44AM ; [facility] Note: SENTINEL NODE NEGATIVE - left side Allergic Rhinitis 12/06/2009 ELIZABETH ARNOLD M.D. Active Last Documented On 0 3:42PM ; [facility] Arthritis 12/06/2009 ELIZABETH ARNOLD M.D. A ctive Last Documented On 0 3:41PM ; [facility] Plan of Treatment - Referred to: [facility] - GI - screening colonoscopy due! - Last Documented On 02/25/2018 8:09AM ; [facility] - Follow-up visit 1 year or as needed - Last Documented On 02/25/2018 8:09AM ; [facility] - Clinical summary provided to patient - Last Documented On 02/25/2018 8:09AM ; [facility] - Transition in care, clinical summary provided - Last Documented On 02/25/2018 8:09AM ; [facility] Per new [facility] guidelines, pap was deferred today. This was d/w pt. and pt. is agreeable to this plan. - Last Documented On 02/25/2018 8:09AM ; [facility] Pending Tests Order Diagnosis Results Due Ordering Jose snell In office procedures - *Clia Waived Labs *FIT Test (Fecal Occult Test) Encounter for screening for malignant neoplasm of rectum 03/11/18 AMADO RUSHING [facility]- Last Documented On 9 7:23AM ; [facility] Instructions to patient Instructions for patient : B reast Self Exam discussed Last Documented On 8 7:56AM ; [facility] Lose weight Last Documented On 8 7:56AM ; [facility] Colonoscopy Handout given to patient Last Documented On 8 7:56AM ; [facility] Education and Decision Aids were provided during visit for: Patient Education: Daily lauren cium and vitamin D Last Documented On 8 7:56AM ; [facility] Patient Education: weight be aring exercise Last Documented On 8 7:56AM ; [facility] Assessments Includes: Assessments from this encounter Findings - NORMAL FEMALE EXAM - Last Documented On 02/25/2018 8:09AM ; [facility] - Screening Malig. Neoplasm Rectum - Last Documented On 02/25/2018 8:09AM ; [facility] Instructions Includes: Instructions from this encounter Instructions to patient Instructions for patient : B reast Self Exam discussed Last Documented On 8 7:56AM ; [facility] Lose weight Last Documented On 8 7:56AM ; [facility] Colonoscopy Handout given to patient Last Documented On 8 7:56AM ; [facility] Education and Decision Aids were provided during visit for: Patient Education: Daily lauren cium and vitamin D Last Documented On 8 7:56AM ; [facility] Patient Education: weight be aring exercise Last Documented On 8 7:56AM ; [facility] Medical Equipment - Implanted Devices Includes: Current Devices No Medical Equipment Recorded Medications Includes: Medications discussed during this encounter and other current Medications Current Medications (continue as prescribed) Claritin-D 12 Hour 5-120MG O ral Tablet Extended Release 12 Hour 02/24/2017 Provider: Diagnosis: Last Documented On 7 11:06AM By LUIS FERNANDO YANG ; [facility] Vitamin D3 29503 UNIT Capsule, conventional 02/08/2015 Provider: Diagnosis: Last Documented On 5 10:42AM By LUIS FERNANDO YANG ; [facility] Medications Administered Includes: Administered Medications from this encounter No Administered Medications Recorded Vital Signs Includes: Vital Signs from this encounter Vital Name 02/25/2018 07:54A Blood Pressure Sitting L 140/70 BP Cuff Size Regular Height (in) 63.25 Weight (lb) 163 Body Mass Index (kg/m2) 28.6 Body Surface Area (m2) 1.8 Last Documented: On 02/25/2018 7:57AM ; [facility] Results Includes: Results discussed during this encounter No Results Recorded For Specified Dates History of Present Illness Includes: History of Present Illness from this encounter AR MARTÍNEZ is a 62 year old female. - Medication list reviewed - PRIMARY CARE PROVIDER : Dr Sharp - Menopause has occurred Social History Description Last Updated In monogamous relationship 02/25/2018 Last Documented On 8 8:09AM ; [facility] Non-smoker 02/25/2018 Last Documented On 8 8:09AM ; [facility] Not using alcohol 02/25/2018 Last Documented On 8 8:09AM ; [facility] Not using drugs 02/25/2018 Last Documented On 8 8:09AM ; [facility] Sexually active with 1 partners in the l ast year 02/25/2018 Last Documented On 8 8:09AM ; [facility] Social history unchanged 02/25/2018 Last Documented On 8 8:09AM ; [facility] Smoking status : Never smoker 02/25/2018 Last Documented On 8 8:09AM ; [facility] Procedures and Surgical History Includes: Procedures from this encounter Procedures Code Diagnosis Performing Provider Service L ocation Service Date low fat diet Last Documented On 8 7:56AM ; [facility] fecal occult blood test was negative 36905 Last Documented On 8 7:56AM ; [facility] Surgical History Last Updated Bilateral salpingo-oophorectomy 02/25/20 17 Last Documented On 8 7:52AM ; [facility] Breast Biopsy 02/24/2017 Last Documented On 8 7:52AM ; [facility] History of section x2 7 Last Documented On 8 7:52AM ; [facility] History of oophorectomy 02/24/2017 Last Documented On 8 7:52AM ; [facility] History of salpingectomy 02/24/2017 Last Documented On 8 7:52AM ; [facility] Replacement of a hip 02/24/2017 Last Documented On 8 7:52AM ; [facility] Surgical / procedural histor y ekaterina hip replacement ~left breast lumpectomy with chemo port ~Bilateral oopherectomy 02/24/2017 Last Documented On 8 7:52AM ; [facility] Medical History Includes: Medical History addressed during this encounter Description Last Updated section 02/25/2018 Last Documented On 8 8:09AM ; [facility] No recent change in medical history 02/13 Last Documented On 8 8:09AM ; [facility] History of a DXA of the lateral lumbar s pine was performed 2016 wnl 02/25/2018 Last Documented On 8 8:09AM ; [facility] Sexually active 02/25/2018 Last Documented On 8 8:09AM ; [facility] History of complete colonoscopy 2 repeat in 5 years 02/25/2018 Last Documented On 8 8:09AM ; [facility] History of Pap smear done 02/24/201702/13 Last Documented On 8 8:09AM ; [facility] History of screening mammogram was perfo rmed 07/14/2017 02/25/2018 Last Documented On 8 8:09AM ; [facility] LMP: 2005 02/25/2018 Last Documented On 8 8:09AM ; [facility] Result: normal 02/25/2018 Last Documented On 8 8:09AM ; [facility] Result: normal 02/25/2018 Last Documented On 8 8:09AM ; [facility] 2 02/24/2017 Last Documented On 8 7:52AM ; [facility] History of menopause 2005 02/24/2017 Last Documented On 8 7:52AM ; [facility] Hypertension 02/24/2017 Last Documented On 8 7:52AM ; [facility] Para 2 02/24/2017 Last Documented On 8 7:52AM ; [facility] Family History Includes: Family History addressed during this encounter Description Last Updated Family history unchanged 02/25/2018 Last Documented On 8 8:09AM ; [facility] First child named GOMEZ 198812/13/2009 Last Documented On 8 7:52AM ; [facility] Second child named JEFFREY 1991 0 Last Documented On 8 7:52AM ; [facility] Spouse name: LUIS FERNANDO 12/13/2009 Last Documented On 8 7:52AM ; [facility] Review of Systems Includes: Review of Systems [...] Date Check-In Time Check-Out Time Diagnosis 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 Neoplasm Rectum,Normal Female Exam Clinical Notes Includes: Clinical Notes from this encounter No Clinical Notes Recorded
--- NOTE | 2025-08-15 06:49 | SUR.PREOP ---
PATIENT PHONE AND ALTERNATE NUMBER LUIS FERNANDO (SPOUSE) CONTACTED REGARDING SURGERY TIME BEING MOVED UP. NO RESPONSE ON EITHER NUMBER, MESSAGE LEFT ON BOTH.
--- NOTE | 2025-08-15 06:53 | WPDHPUPDATE1 ---
History and Physical Update Update Date/Time: 08/15/25 06:53 History and Physical has been reviewed, including an updated exam of the patient. There are NO changes in the patient's condition. Risks, benefits, and alternatives have been discussed and questions answered. Patient agrees to proceed with procedure.
[2025-08-15] MEDS: ACETAMINOPHEN 500 MG TABLET 1000 MG PO (08:05)
[2025-08-15] MEDS: KETOROLAC 15 MG/ML VIAL (*BKC) IV PUSH (08:14)
--- NOTE | 2025-08-15 08:15 | P.PNAN_ITS ---
Anes - Initial Pre Proc Eval Procedure: Operation Date: 08/15/25 10:30 Proposed Procedures p Right Knee Arthroscopy Partial Meniscectomy, Proceed as Indicated - Tree Olivo MD Date/Time: 08/15/25 08:15 Surgeon: Tree Olivo MD Pre Op Diagnosis: Right Lateral Meniscus Tear Patient Data Age: 69 Gender: F Height: 1.63 m Weight: 68 kg Allergies Allergy/AdvReac Type Severity Reaction Status Date / Time No Known Allergies Allergy Verified 08/03/25 14:25 Home Medications ?Medication ?Instructions ?Recorded ?Confirmed ?Type cholecalciferol (vitamin D3) 1,250 1,250 mcg PO WEEKLY 04/06/21 06/16/25 History mcg (50,000 unit) capsule loratadine-pseudoephedrine ER 10 1 tablet PO DAILY PRN allergy 04/06/21 06/16/25 History mg-240 mg tablet,extended symptoms [id number] (Claritin-D 24 Hour) aspirin 81 mg tablet,delayed 81 mg PO DAILY 12/19/22 1 History release atorvastatin 80 mg tablet 80 mg PO DAILY 12/19/2211/09 History cyclobenzaprine 5 mg tablet 5 mg PO Q8H PRN MUCSLE SPA SMS 08/03/25 08/03/25 History Patient hx anesthesia problems: none Family hx anesthesia problems: none Results Review: All pre-operative results and documents have been reviewed as part of the pre- operative evaluation. [facility] Past Medical History Medical History Abnormal Pap smear of cervix 04/06/21, HPV pos type 18/45 delivery delivered #1 01/28/89 Male 7 lbs #2 06/30/92 Female 7 lbs Stroke Breast cancer Surgical History Surgical History S/P lumpectomy, right breast x 2 History of section, classical x 2 History of lumpectomy of left breast History of bilateral hip replacements R 2008 Dr Rashid (previously with [facility]) Family History Family History Father Cerebrovascular accident Social History Social History (Reviewed 08/15/25 @ 08:15 by BENITA Valentin Smoking status: Never smoker Alcohol intake: never Substance use: never Lack of Transportation: No Lack of Food: Never True Current Housing: I Have Housing Concerned About Future Housing: No Difficulty Paying Gas/Electric Bills: No Difficulty Paying for Meds: No Currently Unemployed: No Education: Associate Degree Difficulty w/ Childcare or Family Care: No Living arrangements: with family Additional living arrangements comments: [place] Occupation/Education: occupation Gender identity (if verbalized by the patient): Female Sexual Orientation (if Verbalized by the Patient): Straight or Heterosexual Spiritual care concerns: No Anes - Eval Final PreProcedure Day of Procedure 08/15/25 08:15 Patient weight: overweight Heart: regular rate and rhythm Lungs: clear to auscultation Airway: Mallampati scale class II Neurological: alert and oriented Last oral intake: >/= 8 hours ASA classification: III Emergent: no Anesthetic plan: proceed Anesthesia type and monitoring: general LMA and standard monitoring Results Review: All pre-operative results and documents have been reviewed as part of the pre- operative evaluation. Informed Consent: The patient's anesthetic plan and its attendant risks and benefits were discussed with the patient/family/POA. Questions were solicited and answers provided to the satisfaction of the patient/family/POA.
[2025-08-15] MEDS: ceFAZolin 2 GM in SODIUM CHLORIDE 0.9% IV 50 ML 100 ML IVPB (08:23)
[2025-08-15] MEDS: LIDO 1%/EPINEPHRINE 1:100,000 50 ML VIAL (08:42)
--- NOTE | 2025-08-15 09:00 | W.PM.PROC2 ---
Procedure Note - Detailed Date of Procedure 08/15/25 Pre-op Diagnosis Right Lateral Meniscus Tear Post-op Diagnosis Same Procedure Performed Arthroscopy partial meniscectomy laterally of the right knee Surgeon Tree Olivo MD Anesthesia General Indications Pain, Locking and Catching Description of Procedure Patient brought to operating room # 7. An anesthetic was administered. The knee was sterilely prepped and draped in the usual manner. Standard portals were used. Superior medial portal was used for the outflow cannula, inferior lateral portal was used for the scope, inferior medial portal was used for the instruments. Arthroscopy was performed, the patellar femoral joint degenerative changes. The medial compartment showed a fraying. The lateral compartment showed a complex tear. She also had moderately severe degenerative change with lateral grade 3 chondromalacia, laterally. The ACL was intact. Using baskets and alcides the meniscal tear was trimmed back to a stable base so the nothing further could be pulled into the joint. Any loose or delaminated fragments were gently trimmed to a stable base. At this point the instruments were withdrawn, sutures placed and patient left the operating room in satisfactory condition. Estimated Blood Loss 20 Drains No Packing No Pathology None sent Complications No immediate complications Condition Stable Disposition PACU [facility] Billing Surgery - Charge Forward: Surgery Billing ([id number] LMT)
[2025-08-15] MEDS: LACTATED RINGERS 1,000 ML 30 ML IV CONT (09:06)
[2025-08-15] MEDS: oxyCODONE HCL (*CRX) 5 MG TAB IR PO (10:13)
== END 2025-08-15 10:50 | disposition home or self-care (01) ==
PROVIDERS: PCP Family Medicine; Visit Provider Orthopaedic Surgery
PROC: (CPT 29870; principal; 2025-08-15 10:30)
DX: M23.361 Other meniscus derangements, other lateral meniscus, right knee (principal); M22.41 Chondromalacia patellae, right knee; M17.11 Unilateral primary osteoarthritis, right knee
CPT/HCPCS: 29881; J0690; A9270; J1100; J1885; J2004; J2405; J2704; J3010; J7120